=== PATIENT | male | born 1990 | race Caucasian/White ===

== ENCOUNTER 2022-12-20 11:33 | Emergency (ER) | payer OTHER, SELFPAY ==
[2022-12-20 11:51] VITALS: BP 142/70; PULSE 112; RESP 18; TEMP 37.4; O2SAT 99
--- NOTE | 2022-12-20 12:06 | ED.URI ---
HPI - URI/Sore Throat General Chief Complaint: Upper Respiratory Infection Stated Complaint: flu like symptoms Time Seen by Provider: 12/20/22 12:06 Source: patient Mode of arrival: ambulatory Limitations: no limitations History of Present Illness HPI Narrative: 32-year-old male presents with complaint of nasal congestion, cough, back aches, fever, headache starting today. Also has sore throat. Denies nausea vomiting diarrhea. No chest pain or shortness of breath. Took Cold medicine prior to arrival. All systems reviewed and negative except as noted above. Related Data Home Medications Medication Instructions Recorded Confirmed No Home Medications 12/20/22 12/20/22 Allergies Allergy/AdvReac Type Severity Reaction Status Date / Time No Known Allergies Allergy Verified 12/20/22 12:11 Review of Systems Review of Systems: CONSTITUTIONAL: reports fever, chills, or sweats. EYES: Denies visual changes, redness, or discharge. ENT: reports rhinorrhea, congestion, sore throat. Denies otalgia. CARDIOVASCULAR: Denies chest pain, palpitations, or edema. RESPIRATORY: Reports cough or dyspnea. GASTROINTESTINAL: Denies abdominal pain, nausea, vomiting, or diarrhea. GENITOURINARY: Denies dysuria or hematuria. SKIN: Denies rash or itching. MUSCULOSKELETAL: Denies back pain, joint pain, or myalgia. NEUROLOGIC: Denies headache, numbness, or weakness. PSYCHIATRIC: Denies anxiety or depression. All other systems reviewed are negative, except as documented in HPI. REPLACED BY [facility] Family History Family History (Updated 11/04/18 @ 07:13 by DOCTOR UNKNOWN) Mother Depression Other Diabetes mellitus Social History Social History Smoking status: Never smoker Comments At time of signature, agree with nursing past medical, surgical, social and family history. There is no relevant family history pertinent to the presenting complaint. Exam Narrative: GENERAL: This is a well-nourished, well-developed patient. Patient ill-appearing but no distress. HEAD: normocephalic, atraumatic. EYES: PERRL. Sclera clear/white. Vision is grossly intact. EARS: External ears normal, auditory canals clear and without drainage, TMs normal without perforation. Hearing grossly intact. NOSE: External nose normal with Clear nasal drainage, moderate congestion. THROAT: Mucous membranes moist, posterior pharynx clear. NECK: Neck supple, non-tender without lymphadenopathy, masses or thyromegaly. CARDIOVASCULAR: Regular rate and rhythm without murmurs, gallops, or rubs. RESPIRATORY: Clear to auscultation. Breath sounds equal bilaterally. No wheezes, rales, or rhonchi. SKIN: warm, Dry, intact with no suspicious lesions or rash, good texture and turgor. NEURO: awake, alert, and oriented to person, place and time. There were no obvious focal neurologic abnormalities. EXTREMITIES: No joint tenderness, effusion, or edema noted. Course Course Level of Care: Express Care Visit Vital Signs Vital signs: Vital Signs Temperature 37.4 C 12/20/22 11:51 Pulse Rate 112 H 12/20/22 11:51 Respiratory Rate 18 12/20/22 11:51 Blood Pressure 142/70 H 12/20/22 11:51 Pulse Oximetry 99 12/20/22 11:51 Oxygen Delivery Room Air 12/20/22 11:51 Temperature 37.4 C 12/20/22 11:51 Pulse Rate 112 H 12/20/22 11:51 Respiratory Rate 18 12/20/22 11:51 Blood Pressure 142/70 H 12/20/22 11:51 Pulse Oximetry 99 12/20/22 11:51 Oxygen Delivery Room Air 12/20/22 11:51 Reviewed MDM - URI/Sore Throat MDM Narrative Medical decision making narrative: Patient is aware of diagnosis, understands and agrees to treatment plan. Anticipatory guidance given. Patient agrees to follow-up as directed and is aware of reasons to seek care at the emergency department. Portions of this record may have been created with voice recognition software Discharge Plan Discharge Clinical Impression: COVID-19 Patient Disposition: Home, Self-Car
== END 2022-12-20 12:22 | disposition home or self-care (01) ==
PROVIDERS: Emergency Provider Nurse Practitioner Family
DX: U07.1 COVID-19 (principal)
CPT/HCPCS: 87426; 87804; 99213; C9803; G0463

== ENCOUNTER 2023-01-21 00:51 | Emergency (ER) | payer OTHER, SELFPAY ==
--- NOTE | ~2023-01-21 | CT_ITS ---
EXAMINATION: CT abdomen pelvis wo con DATE: 01/21/2023 01:33 INDICATION: Right flank pain, pelvic pain. History of kidney stones. TECHNIQUE: Computed tomography (CT) of the abdomen and pelvis was performed without intravenous contr ast. Automated exposure control and iterative reconstruction technique were employed. Exam dose: 365 .24 mGy-cm total exam DLP. COMPARISON: None. FINDINGS: The lung bases are clear. Normal heart size. No pericardial or pleural effusion. Hepatic steatosis. No hepatic, splenic, pancreatic or adrenal or renal space-occupying mass lesion is detected. The gallbladder is present. No bile duct or pancreatic duct dilatation. Approximately 3.5 mm nonobstructing mid left renal calculus and pinpoint lower pole nonobstructing le ft renal calculus. 5 mm distal right ureteral calculus at approximately S2 level with mild right hydroureteronephrosis. The urinary bladder and prostate gland are unremarkable. Normal caliber of the abdominal aorta. No intraperitoneal or retroperitoneal or pelvic mass lesion or adenopathy or ascites. No evidence of appendicitis. No bowel obstruction, bowel wall thickening, pneumatosis or intraperiton eal free air. Small fat-containing umbilical hernia. Included skeletal structures are unremarkable. IMPRESSION: 5 mm distal right ureteral calculus with mild right hydroureteronephrosis Mild left nonobstructive nephrolithiasis Hepatic steatosis Reviewed, dictated and finalized at [facility] Reviewed, dictated and finalized at [facility] [employer] IMPRESSION: 5 mm distal right ureteral calculus with mild right hydroureterone phrosis Mild left nonobstructive nephrolithiasis Hepatic steatosis
[2023-01-21 00:54] VITALS: BP 138/91; PULSE 63; RESP 14; TEMP 36.6; O2SAT 100
--- NOTE | 2023-01-21 01:10 | ED.MALEGU ---
HPI - Male Genitourinary General Chief complaint: Urogenital-Male Stated complaint: right side flank pain Time Seen by Provider: 01/21/23 01:07 History of Present Illness HPI Narrative: 32-year-old male here for evaluation of right flank pain over the past day. Patient states he has a history of kidney stones and that his pain today feels similar. He denies any nausea, vomiting, fevers, chills, dysuria, urgency or hematuria. Several days ago he had a episode of right-sided groin pain that has since resolved. He never required surgery on his kidney stones as they have passed spontaneously Related Data Allergies Allergy/AdvReac Type Severity Reaction Status Date / Time No Known Allergies Allergy Verified 01/21/23 00:51 Review of Systems Review of Systems: Gen: Denies fevers or chills Eyes: Denies eye pain or visual change ENT: Denies congestion Respiratory: Denies shortness of breath or cough CV: Denies chest pain or palpitations GI: Denies abdominal pain nausea, emesis or diarrhea denies burning, urgency, frequency or hematuria Musculoskeletal: Reports right flank pain. Neuro: Denies numbness, tingling, weakness or focal weakness Skin: Denies rash Except as documented, all other systems reviewed and negative PMFSH Family History Family History (Updated 11/04/18 @ 07:13 by DOCTOR UNKNOWN) Mother Depression Other Diabetes mellitus Social History Social History Smoking status: Never smoker Exam Narrative: APPEARANCE: Well appearing, no pain in distress, well-nourished. Head: Normocephalic and atraumatic. EYES: PERRLA/EOMI, conjunctivae clear NOSE: No nasal drainage EARS: External ear normal in appearance THROAT: Oropharynx is clear. Mucous membranes are moist. NECK: Supple. No adenopathy, no masses. RESPIRATORY: Airway patent, respirations nonlabored. Clear to auscultation bilaterally, no rales, rhonchi, wheezing. CARDIOVASCULAR: Regular rate and rhythm without murmurs, rubs, or gallops. ABDOMINAL: Normoactive bowel sounds. Soft, nontender, nondistended. No rebound tenderness or guarding. MUSCULOSKELETAL: Extremities are warm and well-perfused. Moves all extremities well. No edema. NEURO: Normal speech. No focal neurologic deficits. SKIN: Skin is warm and dry. No rashes. PSYCHIATRIC: Normal affect/mood.. Course Vital Signs Vital signs: Vital Signs Temperature 97.8 F 01/21/23 00:54 Pulse Rate 63 01/21/23 00:54 Respiratory Rate 14 01/21/23 00:54 Blood Pressure 138/91 H 01/21/23 00:54 Pulse Oximetry 100 01/21/23 00:54 Oxygen Delivery Room Air 01/21/23 00:54 Temperature 97.8 F 01/21/23 00:54 Pulse Rate 71 01/21/23 02:52 Respiratory Rate 16 01/21/23 02:52 Blood Pressure 124/76 01/21/23 02:52 Pulse Oximetry 98 01/21/23 02:52 Oxygen Delivery Room Air 01/21/23 00:54 MDM - Male Genitourinary MDM Narrative Medical decision making narrative: 32-year-old male with a history of kidney stones here for evaluation of right flank pain over the past day associated with some nausea. He is nontoxic in appearance and has normal vital signs. No CVA tenderness on exam. CT abdomen pelvis preliminary shows a 0.3 cm distal right stone with moderate hydroureteronephrosis. His urine has red blood cells but no evidence of infection. His kidney function is normal. Feeling improved after [place] in the ED. Feel outpatient management is appropriate at this time. Patient was discharged home to follow-up with urology and given a urine strainer. Return precautions were discussed and he voiced understanding. Lab Data 01/21/23 01:34 01/21/23 01:34 Labs: Lab Results 01/21/23 01/21/23 01/21/23 Range/Units 01:34 01:34 01:34 WBC 9.0 (4.5-10.0) K/mm3 RBC 5.12 (4.6-6.20) M/mm3 Hgb 14.6 (14.0-18.0) g/dL Hct 41.7 L (42.0-52.0) % MCV 81.4 (80-100) fl MCH 28.5 (26-34) pg MCHC 35.0 (32-36) g/dl RDW 12.5 (11
[2023-01-21] MEDS: HYDROcodone/acetaminophen (*CRX) 5-325 MG TABLET 1 TAB PO (01:33)
[2023-01-21 01:44] LABS: Basophils Absolute Auto 0.1 K/mm3 (0.0-0.1); Basophils Percent Auto 0.9 % (0.2-1.2); Eosinophils Absolute Auto 0.3 K/mm3 (0-0.3); Eosinophils Percent Auto 3.1 % (0-4.4); Hematocrit 41.7 % (42.0-52.0); Hemoglobin 14.6 g/dL (14.0-18.0); Immature Granulocyte Absolute 0.02 K/mm3 (0.00-0.031); Immature Granulocyte Percent A 0.2 % (0-0.5); Lymphocytes Absolute Auto 1.85 K/mm3 (0.9-3.2); Lymphocytes Percent Auto 20.6 % (18.3-44.2); Mean Corpuscular Hemoglobin 28.5 pg (26-34); Mean Corpuscular Volume 81.4 fl (80-100); Mean Platelet Volume 9.8 fl (7.4-10.4); Monocytes Absolute Auto 0.7 K/mm3 (0.1-0.6); Monocytes Percent Auto 7.6 % (2.6-8.5); Neutrophils Absolute Auto 6.1 K/mm3 (1.3-6.7); Neutrophils Percent Auto 67.6 % (45.5-73.1); Platelet Count Result 257 k/mm3 (150-375); Red Blood Count 5.12 M/mm3 (4.6-6.20); Red Cell Distribution Width 12.5 % (11.5-14.5)
[2023-01-21 01:48] LABS: Appearance Urine Clear (Clear); Bacteria Urine None Seen /hpf; Bilirubin Urine Negative (Negative); Blood Urine 3+ (Negative); Color Urine Yellow (Yellow); Glucose Urine UA Negative (Negative); Ketones Urine Negative (Negative); Leukocyte Esterase Ur Negative LEU/UL (Negative); Nitrate Urine Negative (Negative); Non Pathogenic Casts 0-2; Protein Urine Negative (Negative); Squamous Epithelial Cell Urine None seen /hpf (Few); Urobilinogen Urine 0.2 mg/dL (<2.0); WBC Urine 0-5 /hpf
[2023-01-21 02:00] LABS: Alanine Aminotransferase 98 U/L (6-50); Albumin Level 5.1 g/dL (3.5-5.1); Alkaline Phosphatase 64 U/L (38-126); Anion Gap 5 mmol/L (8-16); Aspartate Amino Transferase 53 U/L (17-59); Bilirubin,Total 0.7 mg/dL (0.2-1.3); Blood Urea Nitrogen 14 mg/dL (9-20); Calcium 9.1 mg/dL (8.4-10.2); Carbon Dioxide 27 mmol/L (22-30); Chloride 103 mmol/L (98-107); Estimated CRCL calculation 123 ml/min; Estimated Glomerular Filt Rate > 60; Glucose 121 mg/dL (65-110); Potassium 3.7 mmol/L (3.4-5.0); Sodium 135 mmol/L (137-145)
[2023-01-21 02:01] LABS: RBC Urine >75 /hpf (0-2)
[2023-01-21 02:03] LABS: Add Urine Microscopic? YES
[2023-01-21 02:52] VITALS: BP 124/76; PULSE 71; RESP 16; O2SAT 98
== END 2023-01-21 02:53 | disposition home or self-care (01) ==
PROVIDERS: Emergency Provider Physician Assistant
DX: N13.2 Hydronephrosis with renal and ureteral calculous obstruction (principal); Z87.442 Personal history of urinary calculi
CPT/HCPCS: 36415; 74176; 80053; 81001; 85025; 99284; A9270

== ENCOUNTER 2024-06-24 14:48 | Emergency (ER) | payer OTHER, SELFPAY ==
--- NOTE | ~2024-06-24 | XR_ITS ---
EXAMINATION: XR chest 2V DATE: 06/24/2024 15:18 INDICATION: Posterior rib pain. TECHNIQUE: Frontal and lateral views of the chest were obtained. COMPARISON: CT abdomen and pelvis 01/21/2023 FINDINGS: There is no pneumonia, pleural effusion, or pneumothorax. The heart size is normal. IMPRESSION: 1. No acute cardiopulmonary disease. Reviewed, dictated and finalized at [facility].
[2024-06-24 14:55] VITALS: BP 146/77; PULSE 78; RESP 16; TEMP 37.7; O2SAT 99
--- NOTE | 2024-06-24 15:09 | ED.URI ---
HPI - URI/Sore Throat General Chief Complaint: Unspecified Stated Complaint: UTI History of Present Illness HPI Narrative: Patient presents today with complaints of bilateral rib pain that began suddenly at about 11:00 a.m. this morning. He took Advil, moderate relief. He denies all injury and trauma. He denies any fever, chills, sweats. He denies any cough. He denies any exacerbating factors. He voices no other concerns or complaints today. Related Data Home Medications Medication Instructions Recorded Confirmed atomoxetine 40 mg capsule 40 mg PO DAILY 06/24/24 06/24/24 bupropion HCl 100 mg tablet 100 mg PO DAILY 06/24/24 06/24/24 cetirizine 10 mg tablet 10 mg PO DAILY 06/24/24 06/24/24 venlafaxine 37.5 mg 37.5 mg PO DAILY 06/24/24 06/24/24 capsule,extended release 24 hr Allergies Allergy/AdvReac Type Severity Reaction Status Date / Time No Known Allergies Allergy Verified 06/24/24 14:51 Review of Systems Review of Systems: All systems reviewed & are unremarkable except as noted in HPI and below Constitutional: Constitutional: Reports no additional constitutional complaints ENT: Reports system reviewed and no additional complaints, except as documented Cardiovascular: Cardiovascular: Reports no additional cardiovascular complaints Respiratory: Respiratory: Reports as per HPI, Reports no additional respiratory complaints and Reports no additional respiratory complaints Gastrointestinal: Gastrointestinal: Reports no additional gastrointestinal complaints Musculoskeletal: Musculoskeletal: Reports as per HPI [facility] Family History Family History Mother Depression Other Diabetes mellitus Social History Social History Smoking status: Never smoker Exam Const: General: cooperative, no acute distress, alert and awake Orientation/consciousness: oriented to person, oriented to place and oriented to time HENMT: Head: normal to inspection Chest: Chest palpation & inspection: normal inspection of the chest and normal palpation of entire chest wall Resp: Effort & Inspection: normal respiratory effort and able to speak in complete sentences Auscultation: clear to auscultation bilaterally, no crackles, no rales, no rhonchi and no wheezes Cardio: Palpation: normal PMI Rate: regular rate Rhythm: regular rhythm Heart sounds: S1 normal heart sound present and S2 normal heart sound present Neuro: General: oriented to person, oriented to place and oriented to time Cranial nerves: Yes CN's II-XII intact bilaterally Psych: Appearance: grossly normal Thought process: Normal thought process present Insight: Good insight present (Psych) Judgement: Good judgement present (Psych) Course Course Level of Care: Express Care Visit Vital Signs Vital signs: Vital Signs Temperature 99.8 F H 06/24/24 14:55 Pulse Rate 78 06/24/24 14:55 Respiratory Rate 16 06/24/24 14:55 Blood Pressure 146/77 H 06/24/24 14:55 Pulse Oximetry 99 06/24/24 14:55 Oxygen Delivery Room Air 06/24/24 14:55 Temperature 99.8 F H 06/24/24 14:55 Pulse Rate 78 06/24/24 14:55 Respiratory Rate 16 06/24/24 14:55 Blood Pressure 146/77 H 06/24/24 14:55 Pulse Oximetry 99 06/24/24 14:55 Oxygen Delivery Room Air 06/24/24 14:55 MDM - URI/Sore Throat MDM Narrative Medical decision making narrative: Patient with normal physical exam complaining of rib pain, bilateral for a couple of hours. Denies injury or trauma. Pain controlled with ibuprofen. Negative chest x-ray. Discharge home, supportive care measures discussed. Advised follow-up with primary care provider. Emergency department for new or worse symptoms Discharge instructions reviewed with patient, as well as provided in writing per nursing staff. The instructions also include specific and strict return/GO TO THE ER as well as f/u
== END 2024-06-24 15:34 | disposition home or self-care (01) ==
PROVIDERS: Emergency Provider Nurse Practitioner Family; PCP Physician Assistant
DX: M94.0 Chondrocostal junction syndrome [Tietze] (principal)
CPT/HCPCS: 71046; 99213; G0463

== ENCOUNTER 2024-06-25 19:01 | Emergency (ER) | payer OTHER, SELFPAY ==
--- NOTE | ~2024-06-25 | XR_ITS ---
EXAMINATION: XR chest 2V DATE: 06/25/2024 19:17 INDICATION: Chest pain TECHNIQUE: PA and lateral views of the chest were obtained. COMPARISON: Chest radiograph dated 06/24/2024 FINDINGS: The lungs remain clear with no focal airspace opacities, pulmonary edema, pleural effusion or pneumot horax. The cardiomediastinal silhouette is normal. Mild thoracic spondylosis. IMPRESSION: 1. No acute cardiopulmonary disease. Reviewed, dictated and finalized at [facility].
--- NOTE | ~2024-06-25 | CT_ITS ---
EXAMINATION: CT abdomen pelvis w con DATE: 06/25/2024 23:51 INDICATION: Right upper quadrant abdominal pain. Elevated liver enzymes. TECHNIQUE: Computed tomography (CT) of the abdomen and pelvis was performed with 100 mL Omnipaque-350 intravenous contrast. Automated exposure control and iterative reconstruction technique were employe d. The dose-length product was 896.21 mGy-cm. COMPARISON: None FINDINGS: Mild discoid atelectasis at the lingula. Heart size is normal. No pericardial or pleural effusion. Di ffuse hepatic steatosis with focal sparing along the gallbladder fossa. Gallbladder is normal. No int ra or extrahepatic biliary ductal dilation. Spleen, pancreas and bilateral adrenal glands are normal. There are bilateral renal cysts the largest on the right measuring 1.5 cm. 9 mm and 3 mm stones at t he lower pole of the left kidney. No ureteral stones or hydronephrosis. Bowels are normal. Bladder is normal. No free intraperitoneal gas or fluid. No pathologically enlarged abdominal or pelvic lymphad enopathy. Mild thoracic and lumbar spondylosis. IMPRESSION: 1. Diffuse hepatic steatosis. 2. Nonobstructing left nephrolithiasis. Reviewed, dictated and finalized at [facility].
--- NOTE | 2024-06-25 19:01 | ECG_ITS ---
Test Date: 2024-06-25 19:07:56 Measurements Intervals [place] Rate: 83 P: 46 MN: 138 QRS: 67 QRSD: 99 T: 20 QT: 346 QTc: 408 Interpretive Statements SINUS RHYTHM BASELINE ARTIFACT- I, II, III, AVR, AVL, AVF, V4-V6 NORMAL ECG No previous ECG available for comparison Electronically Signed On 06-25-2024 20:24:51 CDT by Aditya Castellanos D.O.
[2024-06-25 19:02] VITALS: BP 146/83; PULSE 86; RESP 16; TEMP 36.8; O2SAT 100
[2024-06-25 19:16] LABS: Basophils Absolute Auto 0.1 K/mm3 (0.0-0.1); Basophils Percent Auto 0.9 % (0.2-1.2); Eosinophils Absolute Auto 0.3 K/mm3 (0-0.3); Eosinophils Percent Auto 3.2 % (0-4.4); Hematocrit 43.7 % (42.0-52.0); Hemoglobin 15.3 g/dL (14.0-18.0); Immature Granulocyte Absolute 0.03 K/mm3 (0.00-0.031); Immature Granulocyte Percent A 0.3 % (0-0.5); Lymphocytes Absolute Auto 2.59 K/mm3 (0.9-3.2); Lymphocytes Percent Auto 29.2 % (18.3-44.2); Mean Corpuscular Hemoglobin 28.7 pg (26-34); Mean Corpuscular Volume 81.8 fl (80-100); Monocytes Absolute Auto 0.9 K/mm3 (0.1-0.6); Monocytes Percent Auto 10.5 % (2.6-8.5); Neutrophils Percent Auto 55.9 % (45.5-73.1); Platelet Count Result 310 k/mm3 (150-375); Red Blood Count 5.34 M/mm3 (4.6-6.20); Red Cell Distribution Width 12.5 % (11.5-14.5); White Blood Count 8.9 K/mm3 (4.5-10.0)
[2024-06-25 19:26] LABS: Alanine Aminotransferase 300 U/L (6-50); Albumin Level 5.1 g/dL (3.5-5.1); Alkaline Phosphatase 73 U/L (38-126); Anion Gap 11 mmol/L (4-12); Aspartate Amino Transferase 280 U/L (17-59); Bilirubin,Total 1.2 mg/dL (0.2-1.3); Blood Urea Nitrogen 9 mg/dL (9-20); Calcium 9.1 mg/dL (8.4-10.2); Carbon Dioxide 29 mmol/L (22-30); Chloride 101 mmol/L (98-107); Estimated CRCL calculation 136 ml/min; Estimated Glomerular Filt Rate > 60; Glucose 115 mg/dL (65-110); Lipase 179 U/L (23-300); Potassium 3.6 mmol/L (3.4-5.0); Prothrombin Time 14.1 Seconds (11.1-14.7); Sodium 141 mmol/L (137-145)
[2024-06-25 19:37] LABS: Troponin I < 0.012 ng/mL (0.000-0.034)
[2024-06-25 23:03] VITALS: BP 151/83; PULSE 77; PULSE 96; RESP 18; TEMP 36.8; O2SAT 100
--- NOTE | 2024-06-25 23:11 | ED.GENADULT ---
[facility] General Adult General Chief complaint: Chest Pain Stated complaint: chest pain Time Seen by Provider: 06/25/24 23:02 Source: patient Mode of arrival: ambulatory Limitations: no limitations History of Present Illness HPI narrative: This is a 33-year-old male who presents to the ED for chief complaint of upper abdominal/chest pain beginning at yesterday. Reports that the pain started shortly after eating yesterday. went to urgent care and was diagnosed with costochondritis. Today states that the pain came back after eating. Reports bilateral rib/ upper abdominal pain that radiates around to the back. endorses 1 episode of vomiting today. Denies fevers, chills , diarrhea, urinary symptoms, cough, exertional chest pain, syncope, numbness, weakness. Related Data Home Medications Medication Instructions Recorded Confirmed atomoxetine 40 mg capsule 40 mg PO DAILY 06/24/24 06/24/24 bupropion HCl 100 mg tablet 100 mg PO DAILY 06/24/24 06/24/24 cetirizine 10 mg tablet 10 mg PO DAILY 06/24/24 06/24/24 venlafaxine 37.5 mg 37.5 mg PO DAILY 06/24/24 06/24/24 capsule,extended release 24 hr Allergies Allergy/AdvReac Type Severity Reaction Status Date / Time No Known Allergies Allergy Verified 06/24/24 14:51 Review of Systems Review of Systems: All systems as dictated in [facility] Family History Family History Mother Depression Other Diabetes mellitus Social History Social History Smoking status: Never smoker Exam Narrative: GENERAL: Well-appearing, well-nourished, and in no acute distress. HEAD: Normocephalic, atraumatic. EYES: PERRLA and EOMI. ENT: Nares clear, no rhinorrhea or epistaxis. Mucous membranes moist. Oropharynx without tonsillar hypertrophy exudate or other lesions. NECK: Supple. No adenopathy or masses. CHEST: No respiratory distress. Clear to auscultation. No wheezes rales or rhonchi HEART: Regular rate and rhythm. No murmur heard. Normal peripheral pulses. ABDOMEN: Soft, nontender, nondistended, normal active bowel sounds. MSK: Normal range of motion. No edema. SKIN: Warm, dry, no rash. NEURO: Alert and oriented x4. No focal deficits. PSYCH: Normal mood and affect. Course Vital Signs Vital signs: Vital Signs Temperature 98.2 F 06/25/24 19:02 Pulse Rate 86 06/25/24 19:02 Respiratory Rate 16 06/25/24 19:02 Blood Pressure 146/83 H 06/25/24 19:02 Pulse Oximetry 100 06/25/24 19:02 Oxygen Delivery Room Air 06/25/24 19:02 Temperature 98.2 F 06/25/24 23:03 Pulse Rate 77 06/25/24 23:03 Respiratory Rate 18 06/25/24 23:03 Blood Pressure 151/83 H 06/25/24 23:03 Pulse Oximetry 100 06/25/24 23:03 Oxygen Delivery Room Air 06/25/24 23:03 Medical Decision Making MDM Narrative Medical decision making narrative: This is a 33-year-old male who presents to the ED for chief complaint of bilateral lower chest/ upper abdominal pain. Vitals are normal. CBC shows normal white count and is grossly unremarkable. CMP remarkable for a slightly elevated AST and ALT of 280 and 300 respectively. ALP and bilirubin are normal. Troponin x2 is normal. Perc rule negative for PE. Chest x-ray shows no acute findings. CT abdomen remarkable for hepatic steatosis. Discussed the above findings with the patient. We discussed that the fatty liver may be responsible for the elevations in liver enzymes today. would expect elevated ALP if patient had acute gallbladder disease today. Heart score 0. Pt will be discharged in stable condition. Given Rx for Toradol. Return precautions given and supportive measures discussed. Pt is understanding and agreeable with plan for discharge and follow-up with PCP. Vital Signs Vital Signs: Vital Signs Temperature 98.2 F 06/25/24 19:02 Pulse Rate 86 06/25/24 19:02 Respiratory Rate 16
[2024-06-25] MEDS: KETOROLAC 30 MG/ML VIAL (*BKC) IV PUSH (23:23)
[2024-06-25 23:44] LABS: Troponin I < 0.012 ng/mL (0.000-0.034)
== END 2024-06-26 00:30 | disposition home or self-care (01) ==
PROVIDERS: Emergency Medicine; Emergency Provider Physician Assistant; PCP Physician Assistant
DX: K76.0 Fatty (change of) liver, not elsewhere classified (principal); N20.0 Calculus of kidney
CPT/HCPCS: 36415; 71046; 74177; 80053; 83690; 84484; 85025; 85610; 85730; 93005; 96374; 99284; J1885; Q9967

== ENCOUNTER 2024-09-22 16:09 | Outpatient (CLI) | payer OTHER, SELFPAY ==
--- NOTE | ~2024-09-22 | XR_ITS ---
EXAMINATION: XR thoracic spine 3V DATE: 09/22/2024 16:28 INDICATION: 2 weeks of thoracic spine pain TECHNIQUE: One AP, lateral and lateral swimmer's views of the thoracic spine were obtained. COMPARISON: Chest radiograph and CT abdomen and pelvis dated 06/25/2024 FINDINGS: Unchanged 13 degree upper thoracic levoscoliosis and 10 degrees mid thoracic dextrocurvature. Sagitta l alignment is normal. Chronic minimal anterior wedging at T6-T8 and at T12 and L1. Mild thoracic spo ndylosis. 10 mm renal stone likely representing the left renal stone seen on the prior CT. Visualized lungs are clear. No pleural effusion or pneumothorax. Heart size is normal. IMPRESSION: 1. Mild S-shaped scoliosis of the thoracic spine with mild spondylosis and minimal chronic anterior w edging of a few mid and lower thoracic vertebral bodies. Reviewed, dictated and finalized at [facility]. IMPRESSION: 1. Mild S-shaped scoliosis of the thoracic spine with mild spondylosis and mini mal chronic anterior wedging of a few mid and lower thoracic vertebral bodies.
--- NOTE | ~2024-09-22 | US_ITS ---
EXAMINATION: US renal BI DATE: 09/22/2024 16:45 INDICATION: Renal cyst TECHNIQUE: Multiple ultrasound grayscale images of the kidneys were obtained. COMPARISON: CT dated 06/25/2024 FINDINGS: The right kidney measures 10.4 x 5.6 x 5.9 cm. The left kidney measures 12.1 x 5.3 x 5.2 cm. The kidn eys demonstrate normal echogenicity. 1.5 cm anechoic cyst with posterior echogenic wall at the lower pole of the right kidney 11 mm anechoic cyst at the lower pole of the left kidney. 13 mm echogenic an d shadowing stone at the left renal pelvis which likely more accurately measured 9 mm on the prior CT . There is no hydronephrosis in either kidney. The bladder is normal with bilateral ureteral jets vis ualized on color Doppler.. IMPRESSION: 1. Bilateral renal cysts and nonobstructing stone at the left renal pelvis. Otherwise normal kidneys with no hydronephrosis in either kidney. Reviewed, dictated and finalized at [facility]. IMPRESSION: 1. Bilateral renal cysts and nonobstructing stone at the left renal pelvis. Ot herwise normal kidneys with no hydronephrosis in either kidney.
== END 2024-09-22 16:10 | disposition home or self-care (01) ==
LOC: ANHIMG 16:12
PROVIDERS: PCP Physician Assistant; Visit Provider Physician Assistant
DX: N28.1 Cyst of kidney, acquired (principal); M47.894 Other spondylosis, thoracic region; M41.9 Scoliosis, unspecified
CPT/HCPCS: 72072; 76775

== ENCOUNTER 2025-01-15 10:00 | Emergency (ER) | payer OTHER, SELFPAY ==
--- NOTE | ~2025-01-15 | XR_ITS ---
Supine and upright views of the abdomen Clinical history: Kidney stone, abdominal pain Findings: Bowel gas pattern is nonspecific. No evidence for obstruction or free air. 1 cm round stone present probably left renal pelvis region. Additional small left lower pole renal stone likely prese nt. No definite right-sided stone seen. Probable calcified pelvic phleboliths. Osseous structures are intact. Impression: 1 cm stone at the left renal pelvis region with additional small left lower pole renal stone. Reviewed, dictated and finalized at location . LED LABORER Impression: 1 cm stone at the left renal pelvis region with additional small left lower kira e renal stone.
--- NOTE | 2025-01-15 10:06 | ED.MALEGU ---
HPI - Male Genitourinary General Chief complaint: Urogenital-Male Stated complaint: Male Problems/UTI Time Seen by Provider: 01/15/25 10:01 Source: patient Mode of arrival: ambulatory Limitations: no limitations History of Present Illness HPI Narrative: Patient is a 34-year-old male who presents with right low back pain, dark urine and mild testicular pain for several days. Patient reports history of kidney stone reports the symptoms feel similar. Denies any testicular swelling, scrotal swelling, abnormal discharge or concern for STI. Denies any fever, chills, nausea, vomiting, diarrhea. Denies any burning with urination, urgency or frequency. Related Data Home Medications ?Medication ?Instructions ?Recorded ?Confirmed ?Last Taken ?Type atomoxetine 40 mg capsule 40 mg PO DAILY 06/24/24 06/24/24 Unknown History bupropion HCl 150 mg 24 hr tablet, mg PO 01/15/25 Unknown History extended release Allergies Allergy/AdvReac Type Severity Reaction Status Date / Time No Known Allergies Allergy Verified 01/15/25 10:12 Review of Systems Review of Systems: All systems reviewed & are unremarkable except as noted in HPI and below Constitutional: Constitutional: Denies chills, Denies fever(s), Denies headache(s), Denies malaise and Denies weakness Eyes: Eyes: Denies change in vision, Denies eye discharge and Denies irritation ENT: Denies otalgia, Denies headache(s), Denies nasal congestion, Denies nasal discharge, Denies sinus pain and Denies sore throat Cardiovascular: Cardiovascular: Denies chest pain, Denies edema, Denies palpitations and Denies dyspnea Respiratory: Respiratory: Denies cough and Denies dyspnea Gastrointestinal: Gastrointestinal: Denies abdominal pain, Denies diarrhea, Denies nausea and Denies vomiting Genitourinary: Genitourinary: Reports hematuria, Denies dysuria, Reports flank pain, Reports testicular pain and Denies urinary urgency Musculoskeletal: Musculoskeletal: Denies back pain and Denies numbness Integumentary/Breasts: Skin/Breast: Denies pruritus and Denies rash Neurologic: Denies headache(s), Denies numbness and Denies weakness Psychiatric: Psychiatric: Reports no additional psychiatric complaints Endocrine: Endocrine: Denies palpitations PMFSH Family History Family History Mother Depression Other Diabetes mellitus Social History Social History Smoking status: Never smoker Comments At time of signature, agree with nursing past medical, surgical, social and family history. There is no relevant family history pertinent to the presenting complaint. Exam Const: General: cooperative, healthy appearing, comfortable, no acute distress and well nourished Nutritional Appearance: well nourished Orientation/consciousness: patient oriented x3 HENMT: Head: normocephalic and atraumatic Ears: external ears normal Face/Nose/Sinus: Normal external nose present, Normal nares present and normal facial exam Face and sinus: normal facial exam Eyes: General: appearance normal, both eyes and all related structures Pupils: Equal, round and reactive pupils present EOM: EOMs intact bilaterally Neck: Neck: normal visual inspection, full ROM and supple Chest: Chest palpation & inspection: normal inspection of the chest Resp: Effort & Inspection: normal respiratory effort and able to speak in complete sentences Cardio: Rate: regular rate Rhythm: regular rhythm GI: Inspection: normal to inspection GI Palp: No abdominal tenderness and Yes Soft to palpation : General: Yes no CVA tenderness Male General Exam: Yes normal external exam Penis: Yes normal penis Meatus: meatus normal Scrotum: scrotum normal Testes: Testes normal Back/Spine/Pelvis: Back: CVA tenderness (left) Skin: General skin exam: normal color and no rashes or lesions noted Neuro: General: patient oriented x3 and moves all extremities Cranial nerves: Yes Equal, round and reactive pupils present Extrem: General: normal to inspection and full ROM Psych: Appearance: grossly normal and well kempt Course Course Emergency Course: Patient being sent to [facility] for further evaluation and treatment for kidney stone. Patient will need intervention. Portions of this record may have been created with voice recognition software Level of Care: Express Care Visit Vital Signs Vital signs: Reviewed Transfer Transfered to: [facility] Transportation: Other (Private auto) Transfer rationale: 1 cm kidney stone present with pain. Accepting physician: Trevor COSBY MDM - Male Genitourinary MDM Narrative Medical decision making narrative: Patient being sent to [facility] for further evaluation and treatment for kidney stone. Patient will need intervention. Differential Diagnosis Differential diagnosis: Likely urinary tract infection, urethritis, epididymitis, acute retention of urine and other (kidney stone) Medical Records Attestation: I reviewed the patient's medical records. Lab Data Attestation: I reviewed the patient's lab results. Imaging Data Radiologist's impression: Supine and upright views of the abdomen Clinical history: Kidney stone, abdominal pain Findings: Bowel gas pattern is nonspecific. No evidence for obstruction or free air. 1 cm round stone present probably left renal pelvis region. Additional small left lower pole renal stone likely present. No definite right-sided stone seen. Probable calcified pelvic phleboliths. Osseous structures are intact. Impression: 1 cm stone at the left renal pelvis region with additional small left lower pole renal stone. Discharge Plan Discharge Clinical Impression: Kidney stone Patient Disposition: Acute Care Hospital Condition: Stable Patient Language: Bahraini Prescriptions: No Action atomoxetine 40 mg capsule 40 mg PO DAILY bupropion HCl 150 mg tablet extended release 24 hr PO Follow-up/Referrals: Vangie,EMORY Green [Primary Care Provider] - Time of Disposition: 11:12
[2025-01-15 10:11] VITALS: BP 141/84; PULSE 93; RESP 15; TEMP 37.6; O2SAT 98
[2025-01-15 10:29] LABS: EDUAAPPEAR Cloudy; EDUABILI Negative (Negative); EDUABLOOD 3+ (Negative); EDUACOLOR1 Dark; EDUAGLUCOSE Negative (Negative); EDUAKETONE Negative (Negative); EDUALEUKO Negative (Negative); EDUANITRATE Negative (Negative); EDUAPROTEIN 2+ (Negative); EDUAUROBILI 0.2
== END 2025-01-15 11:11 | disposition short-term general hospital (02) ==
PROVIDERS: Emergency Provider Nurse Practitioner Family; PCP Physician Assistant
DX: N20.0 Calculus of kidney (principal)
CPT/HCPCS: 74018; 81003; 96372; 99213; G0463

== ENCOUNTER 2025-01-15 11:34 | Emergency (ER) | payer OTHER, SELFPAY ==
--- NOTE | ~2025-01-15 | US_ITS ---
EXAMINATION: US scrotum doppler DATE: 01/15/2025 13:16 INDICATION: Left testicular pain. TECHNIQUE: Grayscale and Doppler ultrasound images of the testes were obtained. COMPARISON: None. FINDINGS: The right testis measures 3.5 x 2.3 x 3.4 cm. The left testis measures 4.5 x 2.5 x 3.0 cm. There is normal vascular flow to both testes. The right epididymis is normal with normal vascular domenica w. The left epididymis demonstrates a 4 mm cyst. There is no varicocele or hydrocele. IMPRESSION: 1. No etiology for the patient's symptoms. Reviewed, dictated and finalized at location A. E ACTOR
--- NOTE | ~2025-01-15 | CT_ITS ---
EXAMINATION: CT abdomen pelvis wo con DATE: 01/15/2025 13:10 INDICATION: Left-sided low back pain. TECHNIQUE: Computed tomography (CT) of the abdomen and pelvis was performed without intravenous contr ast. Automated exposure control and iterative reconstruction technique were employed. The dose-length product was 753.77 mGy-cm. COMPARISON: CT abdomen and pelvis 06/25/2024 FINDINGS: The visualized portions of lung bases demonstrate mild atelectasis on the left. No pleural effusion. The heart size is normal. No pericardial effusion. There is diffuse hepatic steatosis. Calc ifications in the spleen are consistent with old granulomatous disease. The gallbladder, pancreas, an d adrenal glands are normal. There are cysts in the kidneys measuring up to 18 mm on the right. There are 3 mm, 2 mm, and 3 mm stones in left kidney. There is a 9 mm stone in left renal pelvis. The pros [place] is mildly enlarged. There are no dilated loops of bowel. The appendix is not visualized. There a re no pathologically enlarged lymph nodes. There is no free intraperitoneal fluid. There is mild thor acic and lumbar spondylosis. IMPRESSION: 1. Stones in left kidney and left renal pelvis. No hydronephrosis. 2. Diffuse hepatic steatosis. Reviewed, dictated and finalized at location A. PER GRINDER
[2025-01-15 11:42] VITALS: BP 139/77; PULSE 84; RESP 16; TEMP 37.1; O2SAT 100
--- OUTSIDE RECORDS SUMMARY | 2025-01-15 11:52 | XMS_ITS | Clinical Summary ---
Author Organization [facility] Address [address] [place] [id number] Care Team Providers Care Factory Maintenance Manager Name Role Phone Unavailable Primary Care Provider Unavailabl e Social History Tobacco Use Types Packs/Day Years Used Date Smoking Tobacco: Never Assessed Sex and Gender Information Value Date Recorded Sex Assigned at Not on file Legal Sex Male 5:19 PM CDT Gender Identity Not on file Sexual Orientation Not on file Last Filed Vital Signs Vital Sign Reading Time Taken Comments Blood Pressure 108/59 09/01/2015 10:00 AM CDT Pulse 68 09/01/2015 10:00 AM CDT Temperature - - Respiratory Rate - - Oxygen Saturation - - Inhaled Oxygen Concentration - - Weight 83.5 kg (184 lb) 09/01/2015 10:00 AM CDT Height 176.5 cm (5' 9.5 ) 08/03/2015 10:54 AM CD T Body Mass Index 26.78 08/03/2015 10:54 AM CDT Plan of Treatment Health Maintenance Due Date Last Done Comments Annual Physical 1993 Hepatitis C 2008 DTaP, Tdap and Td Vaccines ( 1 - Tdap) 2009 Hepatitis B Vaccines (1 of 3 - 19+ 3-dose series) 2009 COVID-19 Vaccine (2023-2 5 season) 2024 Influenza Adult (#1) 2024 HPV Vaccines Aged Out No longer eligi ble based on patient's age to complete this topic Meningococcal B Vaccine Aged Out No l onger eligible based on patient's age to complete this topic Meningococcal Vaccine Aged Out No austin maureen eligible based on patient's age to complete this topic Pneumococcal Vaccine: Pediat rics (0 to 5 Years) and At-Risk Patients (6 to 64 Years) Aged Out No longer eligible b ased on patient's age to complete this topic RSV Immunizations Under 20 Months Aged Out No longer eligible based on patient's age to complete this topic
--- OUTSIDE RECORDS SUMMARY | 2025-01-15 11:52 | XMS_ITS | Patient Health Record ---
Author Organization [facility] Address [address] [place] [address] Care Team Providers Care Cash Register Balancer Name Role Phone Vangie Shwetha Marcos Primary Care Provider Unav Jamison Amaro Unavailable [phone] [facility]-Migration, Provider Unavailable Unavailab le Allergies No Known Allergies Reason For Referral No Information Medications Medication SIG (Take, Route, Frequency, Duration) Notes Start Date End Date Status Allergy Relief (Cetirizine) 10 MG 1 tab(s) orally once a day 08/29/2023 Active WELLBUTRIN XL 150 mg/24 hours 1 tab(s) orally every 24 hours 08/29/2023 Active ALLERGY RELIEF (CETIRIZINE) 10 mg 1 tab(s) orally once a day 08/29/2023 Active Wellbutrin XL 150 MG 1 tab(s) orally katiuska ry 24 hours 08/29/2023 Active Social History Tobacco Use: Social History Observation Description Date Details (start date - stop date) Never Smoker NA - NA Smoking Smart Form: Question Answer Notes Are you a: never smoker Problems Problem Type SNOMED Code ICD Code Onset Dates Problem Status W/U Status Risk Notes Problem Anxiety disorder (990733153) Anxiety disorder, unspecified (F41.9) Active confirmed Problem Chronic rhinitis (97343199) Chronic rhinitis (J31.0) Active confirmed Problem Snoring (78000670) Snoring (R06.83) Active confirmed Encounters Encounter Location Date Provider Diagnosis [facility] [address] [place] [address] 05/10/2024 Provider ZZ-Migration Hypertrophy of nasal turbinates J34.3 Assessments Encounter Date Diagnosis (ICD Code) Assessment Notes Treatment Notes Treatment Clinical Notes Section Notes 05/10/2024 Hypertrophy of nasal turbinates (ICD-10 - J34.3) Plan Of Treatment Pending Test Test Name Order Date -Respiratory Allergens w/Total IgE Area 8 09/17/2023 Insurance Providers Payer Name Payer Address Payer Phone Subscriber Number Group Number Insured Name Patient Relationship to Insured Coverage Start Date Coverage End Date [facility] [address] [address] [place] [address] [id number] Srinivas Davidson Self - patient is the insured Medical (General) History Medical History History ICD Code Anxiety disorder, unspecified F41.9 Surgical History Surgery Date(Month/Year) appendectomy 1996 Hospitalization History Reason Date(Month/Year) kidney stones 2018 & 2021
--- OUTSIDE RECORDS SUMMARY | 2025-01-15 11:52 | XMS_ITS ---
Author Organization [facility] Address [address] [place] [address] Care Team Providers Care Sorority Mother Name Role Phone Shwetha Vences Primary Care Provider Unav Jamison Amaro Unavailable [phone] [facility]-Migration, Provider Unavailable Unavailab le REASON FOR VISIT [facility] To [facility] Conversion Encounter Medications Medication SIG (Take, Route, Frequency, Duration) Notes Start Date End Date Status Allergy Relief (Cetirizine) 10 MG 1 tab(s) orally once a day 08/29/2023 Active Wellbutrin XL 150 MG 1 tab(s) orally katiuska ry 24 hours 08/29/2023 Active Encounters Encounter Location Date Provider Diagnosis [facility] [address] [place] [address] 05/10/2024 Provider ZZ-Migration Hypertrophy of nasal turbinates J34.3 Assessments Encounter Date Diagnosis (ICD Code) Assessment Notes Treatment Notes Treatment Clinical Notes Section Notes 05/10/2024 Hypertrophy of nasal turbinates (ICD-10 - J34.3) Plan Of Treatment Medication Medication Name Sig Start Date Stop Date Notes Allergy Relief (Cetirizine) 10 MG 1 tab(s) orally once a day 08/29/2023 Wellbutrin XL 150 MG 1 tab(s) orally katiuska ry 24 hours 08/29/2023 Progress Notes * Xavier DAVIDSON:1990 (34 yo M)Acc No.[id number]:05/10/2024 Patient: Srinivas JASON Provider: Mary Juarez :1990 A ge:33 Y S ex:Male Date:05/10/2024 Address:[facility] [address] [place], [place] [id number] Pcp:Shwetha Vences Subjective: * Chief Complaints: * 1 . Multum To Medispan Conversion Encounter. * Medical History: Objective: * Vitals: Assessment: * Assessment: 1. H ypertrophy of nasal turbinates - J34.3 (Primary) Plan: * Treatment: 2. O thers Continue Wellbutrin XL Tablet Extended Release 24 Hour, 150 MG, 1 tab(s), orally, every 24 hours.? * Billing Information: * Visit Code: * Procedure Codes: * Electronic signature of Prov nigelr ZZ-Migration on 01/15/2025 at 11:52 AM SHIPPING LEAD Sign off status: Pending * Provider: Mary Juarez Date: 0 05/10/2024 Generated for Tim daniel/Sis/Benismitting on: 0 01/15/2025 11:52 AM SHIPPING LEAD
--- OUTSIDE RECORDS SUMMARY | 2025-01-15 11:52 | XMS_ITS ---
Author Organization [facility] Address [address] [place] [address] Care Team Providers Care [place] Mill Operator Name Role Phone Shwetha Vences Primary Care Provider Unav ailJamison Carrasco Unavailable [phone] Lucia Justice Unavailable [phone] REASON FOR VISIT Skin testing Encounters Encounter Location Date Provider Diagnosis [facility] [address] [place] [address] 11/13/2023 Lucia Justice Plan Of Treatment No Information Progress Notes * DAVIDSONSrinivas MEDINADOB:1990 (34 yo M)Acc No.[id number]:11/13/2023 Skin Testing Patient: Srinivas JASON Provider: ROSEANNE Donato :1990 A ge:33 Y S ex:Male Date:11/13/2023 Address[address] [id number] Pcp:Shwetha Vences Subjective: * Chief Complaints: * 1 . Skin testing. * Medical History: Objective: * Vitals: Assessment: Plan: * Treatment: * Billing Information: * Visit Code: * Procedure Codes: * Electronic signature of Lucia Justice DNP, FNP-C on 01/15/2025 at 11:52 AM DIRECT MAIL CLERK Sign off status: Pending * Provider: Curt Justice DNP RUBBER AND POUNDER-C Date: 1 01/14/2023 Generated for Tim daniel/Sis/Natalia on: 0 01/15/2025 11:52 AM DIRECT MAIL CLERK
--- OUTSIDE RECORDS SUMMARY | 2025-01-15 11:52 | XMS_ITS ---
Author Organization [facility] Address [address] [place] [address] Care Team Providers Care Service Line Coordinator Name Role Phone Shwetha Vences Primary Care Provider Kassandrav Jamison Amaro Unavailable [phone] Lucia Justice Unavailable [phone] Allergies No Known Allergies REASON FOR VISIT Chronic upper airway symptoms concerning for uncontrolled atopic disease, with itchy, watery eyes and congestion - last dose of cetirizine 10 mg 4 days ago. Medications Medication SIG (Take, Route, Frequency, Duration) Notes Start Date End Date Status WELLBUTRIN XL 150 mg/24 hours 1 tab(s) orally every 24 hours 08/29/2023 Active ALLERGY RELIEF (CETIRIZINE) 10 mg 1 tab(s) orally once a day 08/29/2023 Active Social History Tobacco Use: Social History Observation Description Date Details (start date - stop date) Never Smoker NA - NA Smoking Smart Form: Question Answer Notes Are you a: never smoker Vital Signs Blood pressure systolic 114 mm Hg 09/17/20 Blood pressure diastolic 77 mm Hg 023 Height 70 in 09/17/2023 Weight 227.8 lbs 09/17/2023 BMI 32.68 kg/m2 09/17/2023 Oximetry 96 % 09/17/2023 Encounters Encounter Location Date Provider Diagnosis [facility] [address] [place] [address] 09/17/2023 Lucia Justice Hypertrophy of nasal turbinates J34.3 ; Chronic rhinitis J31.0 and Snoring R06.83 Assessments Encounter Date Diagnosis (ICD Code) Assessment Notes Treatment Notes Treatment Clinical Notes Section Notes 09/17/2023 Hypertrophy of nasal turbinates (ICD-10 - J34.3) Srinivas presents with upper airway symptoms concerning for uncontrolled atopic disease. Unable to complete skin testing previously due to Srinivas remaining on antihistamines. - Srinivas returned today for skin testing. He reports that he last took Zyrtec 4 days ago. Due to this positive and negative control were placed. Skin testing performed to negative control that resulted in a 7 mm wheal consistent with dermatographism so further skin testing could not per reliably performed. - Due to dermatographism will send aeroallergen ImmunoCaps for further assessment. - Consider bringing Srinivas back this Winter to reattempt skin testing vs formulating treatment plan around ImmunoCaps pending laboratory results. He is to hold antihistamines 7-10 days prior to skin testing if indicated 09/17/2023 Chronic rhinitis (ICD-10 - J31.0) See plan above, rule out atopy 09/17/2023 Snoring (ICD-10 - R06.83) Loud snoring and screener suggests intermittent risk for sleep apnea. Do BI for sleep and follow-up as above Plan Of Treatment Medication Medication Name Sig Start Date Stop Date Notes WELLBUTRIN XL 150 mg/24 hours 1 tab(s) o rally every 24 hours 08/29/2023 ALLERGY RELIEF (CETIRIZINE) 10 mg 1 tab(s) orally once a day 08/29/2023 Treatment Notes Assessment Notes Hypertrophy of nasal turbinates Srinivas presents with upper airway symptoms concerning for uncontrolled atopic disease. Unable to complete skin testing previously due to Srinivas remaining on antihistamines. - Srinivas returned today for skin testing. He reports that he last took Zyrtec 4 days ago. Due to this positive and negative control were placed. Skin testing performed to negative control that resulted in a 7 mm wheal consistent with dermatographism so further skin testing could not per reliably performed. - Due to dermatographism will send aeroallergen ImmunoCaps for further assessment. - Consider bringing Srinivas back this Winter to reattempt skin testing vs formulating treatment plan around ImmunoCaps pending laboratory results. He is to hold antihistamines 7-10 days prior to skin testing if indicated Chronic rhinitis See plan above, rule out atopy Snoring Loud snoring and scr eener suggests intermittent risk for sleep apnea. Do BI for sleep and follow-up as above Pending Test Test Name Order Date -Respiratory Allergens w/Total IgE Area 8 09/17/2023 Next Appt Details Follow Up: 6 Weeks, Reason: Evaluation and Management, Laboratory Review, Skin Testing: aeroallergens Procedure Notes * Category Sub-Category Detail Notes Skin Testing Epicutaneous skin testing was performed to negative control that resulted in a 7 mm wheal consistent with dermatographism so further skin testing could not per reliably performed Progress Notes * Srinivas DAVIDSONDOB:1990 (32 yo M)Acc No.[id number]:09/17/2023 Skin Testing Patient: Srinivas Tariq Provider: Curt Justice DNP LANDSCAPER-C :1990 A ge:32 Y S ex:Male Date:09/17/2023 Address:[facility], [address] Pcp:Shwetha Vences Subjective: * Chief Complaints: * C hronic upper airway symptoms concerning for uncontrolled atopic disease, with itchy, watery eyes and congestion - last dose of cetirizine 10 mg 4 days ago. * HPI: * Introduction: I had the pleasure of seeing Riana Davidson, a 32-year-old male with a past medical history of anxiety who presents with chronic upper airway symptoms concerning for allergies, here for follow-up evaluation. Srinivas was initially seen 3 weeks ago, and presented with complaints of nasal congestion, drainage and itchy, watery eyes. He perceives worse symptoms when exposed to pollen, dust, cats and dogs. Report symptoms have been occurring for the majority of his life. Skin testing has yet to be performed due to Srinivas continuing to take his antihistamines. He returns today to undergo skin testing to aeroallergens, however reports that he last took Zyrtec 4 days ago. Today, he reports no fevers, chills, night sweats or other constitutional symptoms. * ROS: A LLERGY: Positive p er the HPI and history, otherwise unremarkable.? S PECIAL SENSES: Positve for n one. C ONSTITUTIONAL: Positive for n one. E NT: Positive p er the HPI and history, otherwise unremarkable.? R ESPIRATORY: Positive p er the HPI and history, otherwise unremakable.? O PHTHALMOLOGY: Positive for p er the HPI and history, otherwise unremarkable. E NDOCRINOLOGY: Positive for n one. C ARDIOLOGY: Positive for n one. G ASTROENTEROLOGY: Positive for n one. U ROLOGY: Positive for n one. D ERMATOLOGY: Positive for p er the HPI and history, otherwise unremakable. N EUROLOGY: Positive for n one. H EMATOLOGY/LYMPH: Positive for n one. M USCULOSKELETAL: Positive for n one. P SYCHOLOGY: Positive for n one. A ll other review of systems per the HPI and history, otherwise unremarkable. * Medical History: * Surgical History: a ppendectomy 1996 * Hospitalization/Major Diagno stic Procedure: k idney stones 2018 & 2021 * Family History: F ather: alive. M other: alive. 2 brother(s) , 1 sister(s) . . mother- diabetes/kidney issues/dementia. * Social History: M arital Status What is your marital status? s aditi A lcohol Screening Do you ever drink alcoholic beverages? Y es Number of drinks per occasion: 2 Frequency? M onthly S moking Are you a : n ever smoker S moking Smart Form Are you a: n ever smoker R ecreational drug use Have you ever used recreational drugs? N o D etails on consumption of certain products? Do you regularly consume products with aspartame; Equal or NutraSweet? Y es Do you regularly consume products with artificial coloring??Yes Have you ever noticed worsening of your rash with these food items? N o E xercise What kind(s) of exercise do you perform regularly? w alking,age-appropriate participation in physical activites How often do you perform this exercise? d aily,every other day A re any of the following personal care products containing fragrance, dye or preservatives used regularly? Shampoo: Y es Conditioner: Y es Soap: Y es Laundry Detergent: Y es Fabric Softener: Y es Deodorant: Y es Perfume, cologne, after shave: Y es Air freshners or other scented products: Y es Hair coloring dyes or rinses: N o Other: N o O ccupation Are you currenly employed? 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 number of years?12 Do you believe that your current or previous occupation has any bearing on your illness? N o Do you have any pending or planned legal action against your current or former employer which pertains to your medical illness? N o Do you anticipate that your evaluation will be used in any legal action against your current employer or former employer? N o Have you had any job with high exposure to fumes, chemicals, dust or other noxious substances? N o Are you currently a student? N o E nvironmental History Living environment: a partment,with pets Where is the home located? [place] How long have you lived there? 2 -4 years How many people live in the home? 2 H ome description Basement: N o Smokers in the home? N o Smokers outside the home? N o Air Conditioning? Y es Central Air? Y es Forced air heating? Y es Gas or electric? e lectric Fireplace? N o Wood burning stove? N o Do you vacuum the home? Y es Air purification systems? N o Pillow and mattress dust-proof encasings? N o Do you use a humidifier? N o Do you own any pets? Y es What kind(s)? (click all that apply) c ats Where do your pets sleep? o ther room in home Fabric softeners used? Y es Plants in the home? N o Is there carpeting in your bedroom? Y es Do you have [id number]-opck carpeting? N o What is the age of your mattress (years)? 6 What material(s) are used to manufacture your bedding and pillow? n atural fiber (e.g. cotton) What is the age of your pillow (years)? 2 What material are your bedding items made of? n atural fiber (e.g. cotton) Do you sleep with quilts or blankets or a duvet? Y es What material? n atural fiber (e.g. cotton) How many cats? 1 * Medications: T akingWellbutrin XL 150 mg/24 hours tablet, extended release 1 tab(s) orally every 24 hoursAllergy Relief (Cetirizine) 10 mg tablet 1 tab(s) orally once a dayMedication List reviewed and reconciled with the patientTaking Wellbutrin XL 150 mg/24 hours tablet, extended release 1 tab(s) orally every 24 hoursTaking Allergy Relief (Cetirizine) 10 mg tablet 1 tab(s) orally once a dayMedication List reviewed and reconciled with the patient * Allergies: N .K.D.A.no[Allergies Verified] Objective: * Vitals: B P:114/77, HR:65 /min, Pulse Oximetry:96 %, Ht: 70 in, Wt: 227.8 lbs, BMI:32.68 Index. * Examination: G eneral examination: General appearance: p leasant, well-developed, well-nourished , male , in no apparent distress , speaking in full sentences. HEENT: p upils equal, round, and reactive to light and accommodation , conjunctiva are normal bilaterally , TMs without evidence of acute infection , clear rhinorrhea is present , no polyps noted , no septal perforation , posterior oropharynx is clear without exudates , erythema on pharyngeal wall, no exudates , tonsils are present , no tongue swelling , and uvula is midline. Oral cavity: n ormal, no lesions. Neck, thyroid : s upple, non-tender, no anterior cervical lymphadenopathy. Breasts : n ot performed. Heart: R RR, S1-S2, no murmurs, no rubs, no gallops. Lungs: c lear to auscultation in all lung ceballos, no wheezes or crackles. Neurologic exam: u nremarkable. Skin: n ormal, no rash, dermatographism, urticaria, angioedema. Back: n ormal. Extremities: n ormal ROM, no clubbing, no cyanosis, no edema. Genitalia: n ot performed. Influenza Vaccine not administered Assessment: * Assessment: 1. H ypertrophy of nasal turbinates - J34.3 (Primary) 2 . C hronic rhinitis - J31.0?3. S noring - R06.83 Plan: * Treatment: 2. C hronic rhinitis Notes: See plan above, rule out atopy 3. S noring Notes: Loud snoring and screener suggests intermittent risk for sleep apnea. Do BI for sleep and follow-up as above 4. O thers Continue Wellbutrin XL tablet, extended release, 150 mg/24 hours, 1 tab(s), orally, every 24 hours.? * Procedures: S kin Testing: Epicutaneous s kin testing was performed to negative control that resulted in a 7 mm wheal consistent with dermatographism so further skin testing could not per reliably performed . * Procedure Codes: G 8427 DOC MEDS VERIFIED W/PT OR [id number] FLU IMM NO ORD/ADMIN DOC GNS00576 PRICK TESTS, Units: 2.00 * Preventive Medicine: Counseling: M edication instruction: W atch for side effects of prescribed medications, Nasal steroid/antihistamine instruction: avoid septum, Hold all medications with antihistamine properties at least 1 week prior to upcoming skin testing at next visit. E ducation: G ENERAL EDUCATION: Our staff spent an additional 30 minutes in direct contact with the patient educating them on their current diagnoses and proper treatment and prevention of symptoms and the proper use of medications. P atient education material sent to portal? Y es C are goal follow up plan BMI management provided Y es Above Normal BMI Follow-up D ietary management education, guidance, and counseling * Follow Up: 6 Weeks (Reason: Evaluation and Management, Laboratory Review, Skin Testing: aeroallergens) * Billing Information: * Visit Code: 56549 Office Visit, Est Pt., Level 3. Modifiers: 25 * Procedure Codes: G8427 DOC MEDS VERIFIED W/PT OR RE. G8483 FLU IMM NO ORD/ADMIN DOC MURALI. 76829 PRICK TESTS. Units: 2.00. Images * mobile_09/17/2023 09:47:31 mobile_09/17/2023 09:47:46 * Electronically co-signed by Jamison Magdaleno MD, FAAAAI on 10/01/2023 at 11:20 AM BILINGUAL EXECUTIVE ASSISTANT Sign off status: Completed true * Provider: Curt Justice, DNP LANDSCAPER-C Date: 1 Generated for Tim daniel/Sis/Benismitting on: 0 01/15/2025 11:52 AM BILINGUAL EXECUTIVE ASSISTANT History and Physical Notes * HPI (History of Present Illness) Category Sub-Category Detail Notes Category Not es *Introduction I had the pleasure o f seeing Srinivas Davidson, a 32-year-old male with a past medical history of anxiety who presents with chronic upper airway symptoms concerning for allergies, here for follow-up evaluation. Srinivas was initially seen 3 weeks ago, and presented with complaints of nasal congestion, drainage and itchy, watery eyes. He perceives worse symptoms when exposed to pollen, dust, cats and dogs. Report symptoms have been occurring for the majority of his life. Skin testing has yet to be performed due to Srinivas continuing to take his antihistamines. He returns today to undergo skin testing to aeroallergens, however reports that he last took Zyrtec 4 days ago. Today, he reports no fevers, chills, night sweats or other constitutional symptoms Examination Category Sub-Category Detail Notes Category Not es General examination HEENT: pupils equal , round, and reactive to light and accommodation , conjunctiva are normal bilaterally , TMs without evidence of acute infection , clear rhinorrhea is present , no polyps noted , no septal perforation , posterior oropharynx is clear without exudates , erythema on pharyngeal wall, no exudates , tonsils are present , no tongue swelling , and uvula is midline Neck, thyroid : supple, non-tender, no anterior cervical lymphadenopathy Heart: RRR, S1-S2, no murmu rs, no rubs, no gallops Lungs: clear to auscultatio n in all lung ceballos, no wheezes or crackles Extremities: normal ROM, no clubb ing, no cyanosis, no edema General appearance: pleasant, well-devel oped, well-nourished , male , in no apparent distress , speaking in full sentences Skin: normal, no rash, gabino matographism, urticaria, angioedema Neurologic exam: unremarkable Oral cavity: normal, no lesions Breasts : not performed Back: normal Genitalia: not performed Influenza Vaccine not administered Reason:: Lala ent Reason Type of Patient Reason:: Refused
--- NOTE | 2025-01-15 12:20 | ED.MALEGU ---
HPI - Male Genitourinary General Chief complaint: Urogenital-Male Stated complaint: testicle pain, flank pain, known kidney stone Time Seen by Provider: 01/15/25 12:06 Source: patient Mode of arrival: ambulatory Limitations: no limitations History of Present Illness HPI Narrative: Patient referred to the emergency room by urgent care because of left testicular pain. Patient reports been having left lower back pain for the last few days also and left testicular pain. And dark urine. Patient had x-ray of the abdomen which showed 1 cm stone at the left renal pelvis region with additional small left lower pole renal stone Patient denies any fever, chills, nausea, vomiting or abdominal pain. Related Data Home Medications ?Medication ?Instructions ?Recorded ?Confirmed ?Last Taken ?Type atomoxetine 40 mg capsule 40 mg PO DAILY 06/24/24 06/24/24 Unknown History bupropion HCl 150 mg 24 hr tablet, mg PO 01/15/25 Unknown History extended release Allergies Allergy/AdvReac Type Severity Reaction Status Date / Time No Known Allergies Allergy Verified 01/15/25 11:44 Review of Systems Review of Systems: All systems reviewed & are unremarkable except as noted in HPI and below PMFSH Family History Family History Mother Depression Other Diabetes mellitus Social History Social History Smoking status: Never smoker Exam Narrative: General appearance: Well-developed, well-nourished Skin: Normal color Head: Normocephalic, nontraumatic Eyes: Clear conjunctiva ENT: Oropharynx normal, ears normal, nose normal Neck: Supple, nontender Chest and respiratory: Airway patent, no respiratory distress, no accessory muscle use Heart: Regular rate/rhythm Abdomen: Soft, nontender, no organomegaly, quiet bowel sounds, testicular exam showed no acute abnormality Vascular: Normal peripheral pulses, normal capillary refill. Musculoskeletal: Left lower back tenderness Neurologic: Alert and oriented ?3, CALIBRATOR BAROMETERS is normal as tested, no gross motor deficit Course Vital Signs Vital signs: Vital Signs Temperature 37.1 C 01/15/25 11:42 Pulse Rate 84 01/15/25 11:42 Respiratory Rate 16 01/15/25 11:42 Blood Pressure 139/77 01/15/25 11:42 Pulse Oximetry 100 01/15/25 11:42 Oxygen Delivery Room Air 01/15/25 11:42 Temperature 37.1 C 01/15/25 11:42 Pulse Rate 84 01/15/25 11:42 Respiratory Rate 16 01/15/25 11:42 Blood Pressure 139/77 01/15/25 11:42 Pulse Oximetry 100 01/15/25 11:42 Oxygen Delivery Room Air 01/15/25 11:42 MDM - Male Genitourinary MDM Narrative Medical decision making narrative: Left lower back pain, left testicular pain, history of kidney stone Vital signs are stable Physical examination consistent with slight tenderness left lower back, testicular exam is benign CT abdomen and pelvis without contrast showed 1 cm stone in the left renal pelvis without hydronephrosis Testicular ultrasound showed no acute abnormalities Urinalysis at the urgent care showed no acute abnormalities Patient to be discharge to follow-up with the urologist and to take Tylenol, ibuprofen as needed Differential Diagnosis Differential diagnosis: Likely other (As above) Medical Records Attestation: I reviewed the patient's medical records. Lab Data Attestation: I reviewed the patient's lab results. 01/15/25 13:17 01/15/25 13:17 Labs: Lab Results 01/15/25 Range/Units 13:17 WBC 6.9 (4.5-10.0) K/mm3 RBC 5.54 (4.6-6.20) M/mm3 Hgb 15.5 (14.0-18.0) g/dL Hct 44.7 (42.0-52.0) % MCV 80.7 (80-100) fl MCH 28.0 (26-34) pg MCHC 34.7 (32-36) g/dl RDW 12.1 (11.5-14.5) % Plt Count 322 (150-375) k/mm3 MPV 9.6 (7.4-10.4) fl Immature Gran % (Auto) 0.3 (0-0.5) % Neut % (Auto) 53.7 (45.5-73.1) % Lymph % (Auto) 31.6 (18.3-44.2) % [place] % (Auto) 8.9 H (2.6-8.5) % Eos % (Auto) 4.5 H (0-4.4) % Baso % (Auto) 1.0 (0.2-1.2) % Lymph # (Auto) 2.17 (0.9-3.2) K/mm3 [place] # (Auto) 0.6 (0.1-0.6) K/mm3 Eos # (Auto) 0.3 (0-0.3) K/mm3 Baso # (Auto) 0.1 (0.0-0.1) K/mm3 Abs Immat Gran (auto) 0.02 (0.00-0.031) K/mm3 Absolute Neuts (auto) 3.7 (1.3-6.7) K/mm3 Absolute Nucleated RBC 0.000 (0.0-0.012) K/mm3 Nucleated RBC % 0.0 (0.0-0.2) % Sodium 143 (137-145) mmol/L Potassium 3.8 (3.4-5.0) mmol/L Chloride 105 (98-107) mmol/L Carbon Dioxide 25 (22-30) mmol/L Anion Gap 13 H (4-12) mmol/L BUN 10 (9-20) mg/dL Creatinine 0.80 (0.7-1.3) mg/dL Estim Creat Clear Calc 134 ml/min Estimated GFR > 60 (59 - ) Glucose 85 (65-110) mg/dL Calcium 9.5 (8.4-10.2) mg/dL Total Bilirubin 0.7 (0.2-1.3) mg/dL AST 35 (17-59) U/L ALT 54 H (6-50) U/L Alkaline Phosphatase 60 (38-126) U/L Total Protein 8.0 (6.3-8.2) g/dL Albumin 4.9 (3.5-5.1) g/dL Imaging Data Radiologist's impression: Impressions Abdomen/Pelvis CT 01/15/25 13:21 IMPRESSION: 1. Stones in left kidney and left renal pelvis. No hydronephrosis. 2. Diffuse hepatic steatosis. Scrotum Ultrasound 01/15/25 13:25 IMPRESSION: 1. No etiology for the patient's symptoms. Critical Care Time Critical Care Time Critical Care Time: No Discharge Plan Discharge Clinical Impression: Kidney stone Patient Disposition: Home, Self-Care Condition: Stable Instructions: Kidney Stones (ED) Additional Instructions: Return if symptoms are worsening , call your urologist for appointment, take Tylenol, ibuprofen as as needed for aches and pain, continue home medications. Patient Language: Estonian Prescriptions: No Action atomoxetine 40 mg capsule 40 mg PO DAILY bupropion HCl 150 mg tablet extended release 24 hr PO Follow-up/Referrals: Vangie,EMORY Green [Primary Care Provider] - Efrem Turner MD [Physician] - 01/16/25 Stand Alone Forms: Work/School Release IP
--- OUTSIDE RECORDS SUMMARY | 2025-01-15 12:38 | XMS_ITS | Clinical Summary ---
Author Organization [facility] Address [address] [place] [id number] Care Team Providers Care Rn Field Case Manager Name Role Phone Unavailable Primary Care [...]
[2025-01-15 13:23] LABS: Basophils Absolute Auto 0.1 K/mm3 (0.0-0.1); Eosinophils Absolute Auto 0.3 K/mm3 (0-0.3); Eosinophils Percent Auto 4.5 % (0-4.4); Hematocrit 44.7 % (42.0-52.0); Hemoglobin 15.5 g/dL (14.0-18.0); Immature Granulocyte Absolute 0.02 K/mm3 (0.00-0.031); Immature Granulocyte Percent A 0.3 % (0-0.5); Lymphocytes Absolute Auto 2.17 K/mm3 (0.9-3.2); Lymphocytes Percent Auto 31.6 % (18.3-44.2); Mean Corpuscular HGB Conc 34.7 g/dl (32-36); Mean Corpuscular Volume 80.7 fl (80-100); Mean Platelet Volume 9.6 fl (7.4-10.4); Monocytes Absolute Auto 0.6 K/mm3 (0.1-0.6); Monocytes Percent Auto 8.9 % (2.6-8.5); Neutrophils Absolute Auto 3.7 K/mm3 (1.3-6.7); Neutrophils Percent Auto 53.7 % (45.5-73.1); Platelet Count Result 322 k/mm3 (150-375); Red Blood Count 5.54 M/mm3 (4.6-6.20); Red Cell Distribution Width 12.1 % (11.5-14.5); White Blood Count 6.9 K/mm3 (4.5-10.0)
[2025-01-15 13:36] LABS: Alanine Aminotransferase 54 U/L (6-50); Albumin Level 4.9 g/dL (3.5-5.1); Alkaline Phosphatase 60 U/L (38-126); Anion Gap 13 mmol/L (4-12); Aspartate Amino Transferase 35 U/L (17-59); Bilirubin,Total 0.7 mg/dL (0.2-1.3); Blood Urea Nitrogen 10 mg/dL (9-20); Calcium 9.5 mg/dL (8.4-10.2); Carbon Dioxide 25 mmol/L (22-30); Chloride 105 mmol/L (98-107); Estimated CRCL calculation 134 ml/min; Estimated Glomerular Filt Rate > 60; Glucose 85 mg/dL (65-110); Potassium 3.8 mmol/L (3.4-5.0); Sodium 143 mmol/L (137-145)
== END 2025-01-15 14:25 | disposition home or self-care (01) ==
PROVIDERS: Emergency Provider Emergency Medicine; PCP Physician Assistant
DX: N20.0 Calculus of kidney (principal); K76.0 Fatty (change of) liver, not elsewhere classified
CPT/HCPCS: 36415; 74176; 76870; 80053; 85025; 93976; 99284

== ENCOUNTER 2025-02-20 11:27 | Emergency (ER) | payer OTHER, SELFPAY ==
--- NOTE | ~2025-02-20 | CT_ITS ---
EXAMINATION: CT abdomen pelvis wo con DATE: 02/20/2025 13:29 INDICATION: Nephrolithiasis with left flank pain TECHNIQUE: Computed tomography (CT) of the abdomen and pelvis was performed without intravenous contr ast. Automated exposure control and iterative reconstruction technique were employed. The dose-length product was 305.49 mGy-cm. COMPARISON: 01/15/2025 FINDINGS: Mild discoid atelectasis at the lingula. Heart size is normal. No pericardial or pleural effusion. Mi ld diffuse hepatic steatosis. Gallbladder, spleen, pancreas and bilateral adrenal glands are normal. Bilateral renal cysts the largest on the right measuring 1.7 cm. 11 mm stone at the left renal pelvis and a couple additional stones measuring up to 3 mm stone at a lower pole calyces of the left kidney . No ureteral stones or hydronephrosis. Bowels are normal. Bladder is normal. No free intraperitonea l gas or fluid. No pathologically enlarged abdominal or pelvic lymphadenopathy. Bones are unremarkabl e. IMPRESSION: 1. No significant change in nonobstructing left nephrolithiasis with 11 mm stone at the left renal pe lvis. Reviewed, dictated and finalized at location B. IMPRESSION: 1. No significant change in nonobstructing left nephrolithiasis with 11 mm ston e at the left renal pelvis.
[2025-02-20 11:28] VITALS: BP 150/90; PULSE 78; RESP 20; TEMP 36.4; O2SAT 100
--- OUTSIDE RECORDS SUMMARY | 2025-02-20 12:19 | XMS_ITS ---
Author Organization [facility] Address [address] [place] [address] Care Team Providers Care Chemical Dependency Counselor Name Role Phone Shwetha Vences Primary Care Provider Kassandrav Jamison Amaro Unavailable [phone] Lucia Justice Unavailable [phone] Allergies No Known Allergies REASON FOR VISIT [...] 09/17/2023 Encounters Encounter Location Date Provider Diagnosis [facility] [address] [place] [address] 09/17/2023 Lucia Justice Hypertrophy of nasal turbinates [...] Notes * Srinivas DAVIDSONDOB:1990 (32 yo M)Acc No.[id number]:09/17/2023 Skin Testing Patient: Srinivas Tariq Provider: Curt Justice DNP URBAN FORESTER-C :1990 A ge:32 Y S ex:Male Date:09/17/2023 Address:[facility] [address], [address] Pcp:Shwetha Vences Subjective: * Chief Complaints: [...] your bedroom? Y es Do you have ytiz-xo-xomx carpeting? N o What is the age [...] n ot performed. Influenza Vaccine not administered R karen: P atient Reason T ype of Patient Reason: R efused Assessment: * Assessment: 1. H ypertrophy of nasal turbinates - J34.3 (Primary) 2 . C hronic rhinitis - J31.0?3. S swathi - R06.83 Plan: * Treatment: 2. C hronic rhinitis Notes: See plan above, rule out atopy 3. S swathi Notes: Loud snoring and screener suggests intermittent [...] G 8427 DOC MEDS VERIFIED W/PT OR VCG2622 FLU IMM NO ORD/ADMIN DOC [id number] PRICK TESTS, Units: 2.00 * Preventive Medicine: [...] aeroallergens) * Billing Information: * Visit Code: 44386 Office Visit, Est Pt., Level 3. Modifiers: 25 * Procedure Codes: G8427 DOC MEDS VERIFIED W/PT OR RE. G8483 FLU IMM NO ORD/ADMIN DOC MURALI. [id number] PRICK TESTS. Units: 2.00. Images * mobile_09/17/2023 09:47:31 mobile_09/17/2023 09:47:46 * Electronically co-signed by Jamison Magdaleno MD, FAAAAI on 10/01/2023 at 11:20 AM INTERVENTIONAL RADIOLOGY TECHNOLOGIST Sign off status: Completed true * Provider: Curt Justice DNP URBAN FORESTER-C Date: Generated for Tim daniel/Sis/eTransmitting on: 0 02/20/2025 12:19 PM CDT History and Physical Notes * HPI (History [...]
--- OUTSIDE RECORDS SUMMARY | 2025-02-20 12:19 | XMS_ITS | Patient Health Record ---
Author Organization [facility] Address [address] [place] [address] Care Team Providers Care Financial Service Representative Name Role Phone Vangie Shwetha Marcos Primary Care Provider Unav Jamison Amaro Unavailable [phone] ZZ-Migration, Provider Unavailable Unavailab le Allergies No [...] W/U Status Risk Notes Problem Anxiety disorder (392141156) Anxiety disorder, unspecified (F41.9) Active confirmed Problem Chronic rhinitis (19865154) Chronic rhinitis (J31.0) Active confirmed Problem Snoring (56733209) Snoring (R06.83) Active confirmed Encounters Encounter Location Date Provider Diagnosis [facility] [address] [place] [address] 05/10/2024 Provider ZZ-Migration Hypertrophy of nasal turbinates [...] Insured Coverage Start Date Coverage End Date [facility] [address] [address] [place] [address] [phone] [id number] Srinivas Davidson Self - patient is the insured Medical (General) History Medical History History ICD Code Anxiety disorder, unspecified F41.9 Surgical History Surgery Date(Month/Year) appendectomy 1996 Hospitalization History Reason Date(Month/Year) kidney stones 2018 & 2021
--- OUTSIDE RECORDS SUMMARY | 2025-02-20 12:19 | XMS_ITS | Clinical Summary ---
Author Organization [facility] Address [address] [place] [address] Care Team Providers Care Chocolatier Name Role Phone Unavailable Primary Care Provider [...]
--- OUTSIDE RECORDS SUMMARY | 2025-02-20 12:20 | XMS_ITS ---
Author Organization [facility] Address [address] [place] [address] Care Team Providers Care Mender Knit Goods Name Role Phone Shwetha Vences Primary Care Provider Kassandrav Jamison Amaro Unavailable [phone] ZZ-Migration, Provider Unavailable Unavailab le REASON FOR VISIT [facility] Conversion Encounter Medications Medication SIG (Take, Route, Frequency, Duration) Notes Start Date End Date Status Allergy Relief (Cetirizine) 10 MG 1 tab(s) orally once a day 08/29/2023 Active Wellbutrin XL 150 MG 1 tab(s) orally katiuska ry 24 hours 08/29/2023 Active Encounters Encounter Location Date Provider Diagnosis [facility] [address] [place] [address] 05/10/2024 Provider ZZ-Migration Hypertrophy of nasal turbinates [...] Notes * Xavier DAVIDSON:1990 (34 yo M)Acc No.[id number]:05/10/2024 Patient: Srinivas JASON Provider: Mary Juarez :1990 A ge:33 Y S ex:Male Date:05/10/2024 Address:[facility] [address], [address] [place], [place] [address] Pcp:Shwetha Vences Subjective: * Chief Complaints: * [...] Electronic signature of Prov nigelr ZZ-Migration on 02/20/2025 at 12:19 PM CDT Sign off status: Pending * Provider: Mary Juarez Date: 0 05/10/2024 Generated for Tim daniel/Sis/Benismitting on: 0 02/20/2025 12:19 PM CDT
--- OUTSIDE RECORDS SUMMARY | 2025-02-20 12:20 | XMS_ITS ---
Author Organization [facility] Address [address] [place] [address] Care Team Providers Care Instrument Mechanics Supervisor Name Role Phone Shwetha Vences Primary Care Provider Unav ailJamison Carrasco Unavailable [phone] Lucia Justice Unavailable [phone] REASON FOR VISIT Skin testing Encounters Encounter Location Date Provider Diagnosis [facility] [address] [place] [address] 11/13/2023 Lucia Justice Plan Of Treatment No Information Progress Notes * DAVIDSONSrinivas MEDINADOB:1990 (34 yo M)Acc No.[id number]:11/13/2023 Skin Testing Patient: Srinivas JASON Provider: ROSEANNE Donato :1990 A ge:33 Y S ex:Male Date:11/13/2023 Address:[address] [facility] Pcp:Shwetha Vences Subjective: * Chief Complaints: * 1 . Skin testing. * Medical History: Objective: * Vitals: Assessment: Plan: * Treatment: * Billing Information: * Visit Code: * Procedure Codes: * Electronic signature of Lucia Justice DNP, FNP-C on 02/20/2025 at 12:20 PM CDT Sign off status: Pending * Provider: Curt Justice DNP ELECTROPLATER-C Date: 1 01/14/2023 Generated for Tim daniel/Sis/Natalia on: 0 02/20/2025 12:20 PM CDT
[2025-02-20 13:23] LABS: Basophils Absolute Auto 0.1 K/mm3 (0.0-0.1); Basophils Percent Auto 1.3 % (0.2-1.2); Eosinophils Absolute Auto 0.3 K/mm3 (0-0.3); Eosinophils Percent Auto 4.6 % (0-4.4); Hematocrit 45.6 % (42.0-52.0); Hemoglobin 15.6 g/dL (14.0-18.0); Immature Granulocyte Absolute 0.03 K/mm3 (0.00-0.031); Immature Granulocyte Percent A 0.4 % (0-0.5); Lymphocytes Absolute Auto 1.93 K/mm3 (0.9-3.2); Lymphocytes Percent Auto 25.8 % (18.3-44.2); Mean Corpuscular HGB Conc 34.2 g/dl (32-36); Mean Corpuscular Hemoglobin 28.2 pg (26-34); Mean Corpuscular Volume 82.3 fl (80-100); Mean Platelet Volume 9.8 fl (7.4-10.4); Monocytes Absolute Auto 0.7 K/mm3 (0.1-0.6); Monocytes Percent Auto 9.2 % (2.6-8.5); Neutrophils Absolute Auto 4.4 K/mm3 (1.3-6.7); Neutrophils Percent Auto 58.7 % (45.5-73.1); Platelet Count Result 318 k/mm3 (150-375); Red Blood Count 5.54 M/mm3 (4.6-6.20); Red Cell Distribution Width 12.5 % (11.5-14.5); White Blood Count 7.5 K/mm3 (4.5-10.0)
[2025-02-20 13:26] LABS: Add Urine Microscopic? YES; Appearance Urine Clear (Clear); Bacteria Urine None Seen /hpf; Bilirubin Urine Negative (Negative); Blood Urine 3+ (Negative); Color Urine Yellow (Yellow); Glucose Urine UA Negative (Negative); Ketones Urine Negative (Negative); Leukocyte Esterase Ur Negative LEU/UL (Negative); Nitrate Urine Negative (Negative); Non Pathogenic Casts 0-2; Protein Urine Trace mg/dL (Negative); RBC Urine 51-100 /hpf (0-2); Specific Grav Ur 1.011 (1.001-1.035); Squamous Epithelial Cell Urine None Seen /hpf (Few); Urobilinogen Urine 0.2 mg/dL (<2.0); WBC Urine 0-5 /hpf (0-3); pH Urine 6.5 (5.0-9.0)
[2025-02-20 13:33] LABS: Alanine Aminotransferase 68 U/L (6-50); Albumin Level 5.1 g/dL (3.5-5.1); Alkaline Phosphatase 58 U/L (38-126); Anion Gap 11 mmol/L (4-12); Aspartate Amino Transferase 36 U/L (17-59); Bilirubin,Total 0.7 mg/dL (0.2-1.3); Blood Urea Nitrogen 15 mg/dL (9-20); Calcium 9.6 mg/dL (8.4-10.2); Carbon Dioxide 27 mmol/L (22-30); Chloride 104 mmol/L (98-107); Estimated CRCL calculation 118 ml/min; Estimated Glomerular Filt Rate > 60; Glucose 93 mg/dL (65-110); Potassium 4.2 mmol/L (3.4-5.0); Sodium 142 mmol/L (137-145)
--- NOTE | 2025-02-20 16:40 | ED.MALEGU ---
HPI - Male Genitourinary General Chief complaint: Urogenital-Male Stated complaint: kidney stones Time Seen by Provider: 02/20/25 15:57 History of Present Illness HPI Narrative: 34-year-old otherwise healthy male with a past medical history including kidney stones presenting to the emergency department with left-sided flank pain persisting since last month. He was diagnosed with a kidney stone last month and told that would pass on its own. He knows that he has not passed any stones any still having intermittent colicky pain is left flank. No dysuria hematuria. No nausea or vomiting. No abdominal pain, testicular pain, chest pain shortness a breath. Has not seen a specialist for this. Was otherwise in his normal state of health. Related Data Home Medications ?Medication ?Instructions ?Recorded ?Confirmed ?Last Taken ?Type atomoxetine 40 mg capsule 40 mg PO DAILY 06/24/24 06/24/24 Unknown History bupropion HCl 150 mg 24 hr tablet, mg PO 01/15/25 Unknown History extended release Allergies Allergy/AdvReac Type Severity Reaction Status Date / Time No Known Allergies Allergy Verified 01/15/25 11:44 Review of Systems Review of Systems: As reviewed above in HPI [facility] Family History Family History Mother Depression Other Diabetes mellitus Social History Social History Smoking status: Never smoker Exam Narrative: GENERAL: [Well-appearing, well-nourished, and in no acute distress.] HEAD: [Normocephalic, atraumatic.] EYES: [PERRLA and EOMI.] ENT: Nares clear, no rhinorrhea or epistaxis. Mucous membranes moist. NECK: Supple. CHEST: [Clear to auscultation. No respiratory distress.] HEART: [Regular rate and rhythm]. No murmur heard. [Normal peripheral pulses.] ABDOMEN: [Soft, nondistended], [nontender], [No rigidity or guarding] EXTREMITIES: Normal range of motion. [No edema.] SKIN: Warm, dry, no rash. NEURO: [No focal deficits]. Alert and oriented [x3.] PSYCH: [Normal mood and affect.] Course Vital Signs Vital signs: Vital Signs Temperature 36.4 C 02/20/25 11:28 Pulse Rate 78 02/20/25 11:28 Respiratory Rate 20 02/20/25 11:28 Blood Pressure 150/90 H 02/20/25 11:28 Pulse Oximetry 100 02/20/25 11:28 Oxygen Delivery Room Air 02/20/25 11:28 Temperature 36.4 C 02/20/25 11:28 Pulse Rate 78 02/20/25 11:28 Respiratory Rate 20 02/20/25 11:28 Blood Pressure 150/90 H 02/20/25 11:28 Pulse Oximetry 100 02/20/25 11:28 Oxygen Delivery Room Air 02/20/25 11:28 MDM - Male Genitourinary MDM Narrative Medical decision making narrative: 34-year-old male with history of kidney stones presenting to the emergency room with left flank pain. He has had similar symptoms last month and feels like this is a recurrence of the same pain. Has been taking Tylenol ibuprofen without any relief of symptoms. No dysuria hematuria. No chest pain shortness a breath. No nausea vomiting. Examination is benign, reassuring vital signs, no tachycardia, fever or hypoxia. Suspicion is presently for kidney stone, obstructing stone, pyelonephritis, ureteral stone, bladder stone, urinary infection. Workup was ordered including urinalysis, CBC, CMP, CT scan without contrast. Patient states his pain is 1/10 presently but sometimes goes up to 5/10. Patient will be given Toradol for analgesia while workup underway. Workup shows no leukocytosis or anemia. Normal platelet count. Electrolytes within normal limits, normal renal function, normal hepatic function. Normal glucose. Urinalysis without signs of infection. CT scan shows no significant change in the nonobstructing left renal stone at 11 mm within the left renal pelvis. Patient's symptoms are consistent with renal colic from this. He will need to follow-up with a urologist for potential intervention such as lithotripsy or other treatments. He will be given Toradol and oxycodone as needed in addition to Flomax. Provided urology follow-up instructions and safe for discharge at this time. Medical Records Attestation: I reviewed the patient's medical records. Lab Data Attestation: I reviewed the patient's lab results. 02/20/25 13:13 02/20/25 13:13 Labs: Lab Results 03/28/25 Range/Units 13:13 WBC 7.5 (4.5-10.0) K/mm3 RBC 5.54 (4.6-6.20) M/mm3 Hgb 15.6 (14.0-18.0) g/dL Hct 45.6 (42.0-52.0) % MCV 82.3 (80-100) fl MCH 28.2 (26-34) pg MCHC 34.2 (32-36) g/dl RDW 12.5 (11.5-14.5) % Plt Count 318 (150-375) k/mm3 MPV 9.8 (7.4-10.4) fl Immature Gran % (Auto) 0.4 (0-0.5) % Neut % (Auto) 58.7 (45.5-73.1) % Lymph % (Auto) 25.8 (18.3-44.2) % [place] % (Auto) 9.2 H (2.6-8.5) % Eos % (Auto) 4.6 H (0-4.4) % Baso % (Auto) 1.3 H (0.2-1.2) % Lymph # (Auto) 1.93 (0.9-3.2) K/mm3 [place] # (Auto) 0.7 H (0.1-0.6) K/mm3 Eos # (Auto) 0.3 (0-0.3) K/mm3 Baso # (Auto) 0.1 (0.0-0.1) K/mm3 Abs Immat Gran (auto) 0.03 (0.00-0.031) K/mm3 Absolute Neuts (auto) 4.4 (1.3-6.7) K/mm3 Absolute Nucleated RBC 0.000 (0.0-0.012) K/mm3 Nucleated RBC % 0.0 (0.0-0.2) % Sodium 142 (137-145) mmol/L Potassium 4.2 (3.4-5.0) mmol/L Chloride 104 (98-107) mmol/L Carbon Dioxide 27 (22-30) mmol/L Anion Gap 11 (4-12) mmol/L BUN 15 D (9-20) mg/dL Creatinine 0.91 (0.7-1.3) mg/dL Estim Creat Clear Calc 118 ml/min Estimated GFR > 60 (59 - ) Glucose 93 (65-110) mg/dL Calcium 9.6 (8.4-10.2) mg/dL Total Bilirubin 0.7 (0.2-1.3) mg/dL AST 36 (17-59) U/L ALT 68 H (6-50) U/L Alkaline Phosphatase 58 (38-126) U/L Total Protein 8.0 (6.3-8.2) g/dL Albumin 5.1 (3.5-5.1) g/dL Urine Color Yellow (Yellow) Urine Appearance Clear (Clear) Urine pH 6.5 (5.0-9.0) Ur Specific [place] 1.011 (1.001-1.035) Urine Protein Trace (Negative) mg/dL Urine Glucose (UA) Negative (Negative) mg/dL Urine Ketones Negative (Negative) mg/dL Ur Blood (Man) 3+ H (Negative) Urine Nitrate Negative (Negative) Urine Bilirubin Negative (Negative) Urine Urobilinogen 0.2 (<2.0) mg/dL Leukocyte Esterase Rfl Negative (Negative) AVIS/UL Urine RBC 51-100 H (0-2) /hpf Urine WBC 0-5 (0-3) /hpf Ur Squamous Epith Cells None seen (Few) /hpf Urine Bacteria None seen /hpf Urine Casts 0-2 Imaging Data Attestation: I personally reviewed and interpreted this imaging study as follows: My impression: Impressions Abdomen/Pelvis CT 02/20/25 13:37 IMPRESSION: 1. No significant change in nonobstructing left nephrolithiasis with 11 mm stone at the left renal pelvis. Discharge Plan Discharge Clinical Impression: Left nephrolithiasis, Renal colic on left side Patient Disposition: Home, Self-Care Condition: Stable Instructions: Antibiotic Form, Kidney Stones (ED), Lithotripsy (DC) Additional Instructions: Your CT scan shows a 11 mm stone in the left renal pelvis which is likely causing her symptoms of renal colic. There is no signs of obstruction, no urinary tract infection, normal laboratories including kidney function. We will send you home with as needed pain medications and refer you to urologist. Call their office for close outpatient follow-up visit and potential interventions. If he exhibits any new or worsening concerns return to the ER otherwise follow-up with your regular doctor and Urology office Patient Language: Divehi Prescriptions: New ketorolac 10 mg tablet 10 mg PO Q8H PRN (Reason: pain) 5 Days Qty: 20 0RF Rx Instructions: maximum total duration of 5 days from all oral, intranasal, or parenteral formulations tamsulosin [Flomax] 0.4 mg capsule 0.4 mg PO DAILY Qty: 20 0RF oxycodone 5 mg tablet 5 mg PO Q8H PRN (Reason: pain) Qty: 10 0RF No Action atomoxetine 40 mg capsule 40 mg PO DAILY bupropion HCl 150 mg tablet extended release 24 hr PO Follow-up/Referrals: Vangie,EMORY Green [Primary Care Provider] - Ernestina Murray MD [Physician] - 1 Week (11mm left stone) Efrem Turner MD [Physician] - 1 Week (11mm left stone) Time of Disposition: 16:46
--- OUTSIDE RECORDS SUMMARY | 2025-02-20 16:48 | XMS_ITS | Clinical Summary ---
Author Organization [facility] Address [address] [place] [address] Care Team Providers Care Falsework Builder Name Role Phone Unavailable Primary Care Provider [...]
[2025-02-20] MEDS: KETOROLAC 15 MG/ML VIAL (*BKC) IV PUSH (16:50)
[2025-02-20 17:05] VITALS: BP 140/80; PULSE 75; RESP 16; O2SAT 100
== END 2025-02-20 17:06 | disposition home or self-care (01) ==
PROVIDERS: Physician Assistant; Emergency Provider Student in an Organized Health Care Education/Training Program; PCP Physician Assistant
DX: N20.0 Calculus of kidney (principal)
CPT/HCPCS: 36415; 74176; 80053; 81001; 85025; 96374; 99284; J1885

== ENCOUNTER 2025-04-13 16:58 | Outpatient (CLI) | payer OTHER, SELFPAY ==
--- OUTSIDE RECORDS SUMMARY | 2025-04-13 17:00 | XMS_ITS ---
Author Organization [facility] [place] ([address]) Address [address] [place] [address] Care Team Providers Care Slip Injector And Applicator Name Role Phone Shwetha Vences Primary Care Provider Jamison Hernandez Unavailable [phone] ZZ-Migration, Provider Unavailable Unavailab [facility] Conversion Encounter Medications Medication SIG (Take, Route, Frequency, Duration) Notes Start Date End Date Status Allergy Relief (Cetirizine) 10 MG 1 tab(s) orally once a day 08/29/2023 Active Wellbutrin XL 150 MG 1 tab(s) orally katiuska ry 24 hours 08/29/2023 Active Encounters Encounter Location Date Provider Diagnosis [address] [address] 05/10/2024 Provider ZZ-Migration Hypertrophy of nasal turbinates [...] Notes * Xavier DAVIDSON:1990 (34 yo M)Acc No.[id number]:05/10/2024 Patient: Srinivas JASON Provider: Mary Juarez :1990 A ge:33 Y S ex:Male Date:05/10/2024 Address:[facility] [address], [address] [place], [place] [address] Pcp:Shwetha Vences Subjective: * Chief Complaints: * [facility] . [facility]. * Medical History: Objective: * Vitals: Assessment: * Assessment: 1. H ypertrophy of nasal turbinates - J34.3 (Primary) Plan: * Treatment: 2. O thers Continue Wellbutrin XL Tablet Extended Release 24 Hour, 150 MG, 1 tab(s), orally, every 24 hours. * Billing Information: * Visit Code: * Procedure Codes: * Electronic signature of Prov ider ZZ-Migration on 04/13/2025 at 05:00 PM CDT Sign off status: Pending * Provider: Mary Juarez Date: 0 05/10/2024 Generated for Tim daniel/Sis/Jose Eduardoitting on: 04/13/2025 05:00 PM CDT
--- OUTSIDE RECORDS SUMMARY | 2025-04-13 17:00 | XMS_ITS ---
Author Organization [facility] [place] ([address]) Address [address] [place] [address] Care Team Providers Care Treasury Accountant Name Role Phone Shwetha Vences Primary Care Provider Unav Jamison Amaro Unavailable [phone] Lucia Justice [phone] REASON FOR VISIT Skin testing Encounters Encounter Location Date Provider Diagnosis [facility] [address] [place] [address] 11/13/2023 Lucia Justice Plan Of Treatment No Information Progress Notes * DAVIDSONSrinivasDOB:1990 (34 yo M)Acc No.[id number]:11/13/2023 Skin Testing Patient: Srinivas JASON Provider: ROSEANNE Donato :1990 A ge:33 Y S ex:Male Date:11/13/2023 Address:[address] [facility] Pcp:Shwetha Vences Subjective: * Chief Complaints: * 1 . Skin testing. * Medical History: Objective: * Vitals: Assessment: Plan: * Treatment: * Billing Information: * Visit Code: * Procedure Codes: * Electronic signature of Lucia Justice DNP, FNP-C on 04/13/2025 at 05:00 PM CDT Sign off status: Pending * Provider: Curt Justice DNP COURT ADVOCATE-C Date: 1 01/14/2023 Generated for Tim daniel/Sis/Natalia on: 0 04/13/2025 05:00 PM CDT
--- OUTSIDE RECORDS SUMMARY | 2025-04-13 17:00 | XMS_ITS | Patient Health Record ---
Author Organization [facility] [place] ([address]) Address [address] [place] [address] Care Team Providers Care Die Keeper Name Role Phone Shwetha Vences Primary Care Provider Jamison Hernandez Unavailable [phone] ZZ-Migration, Provider Unavailable Unavailab le Allergies No [...] W/U Status Risk Notes Problem Anxiety disorder (142251783) Anxiety disorder, unspecified (F41.9) Active confirmed Problem Chronic rhinitis (17850539) Chronic rhinitis (J31.0) Active confirmed Problem Snoring (77535131) Snoring (R06.83) Active confirmed Encounters Encounter Location Date [facility] [id number] [facility]/10/[facility]24 Provider RAQUEL-Ann Hypertrophy of nasal turbinates J34.3 Assessments Encounter [...] Insured Coverage Start Date Coverage End Date [facility] [address] [address] [place] [address] [id number] Srinivas Davidson Self - patient is the insured Medical (General) History Medical History History ICD Code Anxiety disorder, unspecified F41.9 Surgical History Surgery Date(Month/Year) appendectomy 1996 Hospitalization History Reason Date(Month/Year) kidney stones 2018 & 2021
--- OUTSIDE RECORDS SUMMARY | 2025-04-13 17:00 | XMS_ITS | Clinical Summary ---
Author Organization [facility] Address [address] [place] [address] Care Team Providers Care Tutoring Clinician Name Role Phone Unavailable Primary Care Provider [...] - 19+ 3-dose series) 2009 COVID-19 Vaccine ( - 2023-2 5 season) 2024 HPV Vaccines Aged Out No longer eligi ble based on patient's age to complete this topic Meningococcal B Vaccine Aged Out No l onger eligible based on patient's age to complete this topic Meningococcal Vaccine Aged Out No austin maureen eligible based on patient's age to complete this topic Pneumococcal Vaccine: Pediat rics (0 to 5 Years) and At-Risk Patients (6 to 49 Years) Aged Out No longer eligible b ased on patient's age to complete this topic RSV Immunizations Under 20 Months Aged Out No longer eligible based on patient's age to complete this topic
[2025-04-13 18:22] LABS: Prothrombin Time 13.7 Seconds (11.1-14.7)
[2025-04-13 18:23] LABS: Partial Thromboplastin Time 25.8 Seconds (22.3-36.8)
== END 2025-04-13 16:59 | disposition home or self-care (01) ==
LOC: ANHLAB 16:59
PROVIDERS: PCP Physician Assistant; Visit Provider Urology
DX: N20.0 Calculus of kidney (principal)
CPT/HCPCS: 36415; 85610; 85730; 87086

== ENCOUNTER 2025-04-17 00:32 | Day surgery (SDC) | payer OTHER, SELFPAY ==
--- NOTE | 2025-04-08 15:09 | PC.NURSE ---
Addendum entered by Trista Louis RN 04/15/25 09:17: Late entry from 04/09 at 1210 - Left message for patient to stop Ketorolac on Sunday, 04/10. Original Note: Report to the Outpatient Waiting Room, entrance under the green pavilion located off [facility], at time _0930 on date 04/17/25_. Planned Procedure Time: _1130_.? Time changes happen often and if your time is changed the preop area will call you the afternoon before. - You and your visitor will be asked to self-screen and do not enter if you have any COVID symptoms. Please call surgeon if you need to reschedule. - A mask is optional within the hospital at this time. Patients may have clear liquids (water, carbonated beverages, clear teas, apple juice) until 3 hours prior to surgery with a maximum of 20 ounces. - No food from midnight until time of surgery and no smoking, or chewing tobacco (or any form of nicotine). No chewing gum, candy or mints. - Infants may have breast milk until 4 hours before surgery, formula 6 hours prior to surgery. - Children will be allowed to drink immediately following surgery.? If applicable, please bring a bottle or sippy cup to assist with drinking. Juice, water, soda, and popsicles are readily available.? For infants on formula, please bring formula the day of surgery.? Pacifiers are allowed. Take only the following medications with a SIP of water on the morning of surgery: _ATOMOXETINE, BUPROPION, PAIN MED IF NEEDED DO NOT STOP ANY OF YOUR OTHER PRESCRIPTION MEDICATIONS PRIOR TO SURGERY EXCEPT THE FOLLOWING Hold all vitamins and supplements for 3 days per anesthesiologist. Medications to discontinue per physician ___KETOROLAC Date to take last dose____04/13/25 Please no make-up, nail citizen of [place], hairspray, perfume, deodorant, or body powder the day of surgery.? No jewelry (including any body piercings) or valuables the day of surgery, leave them at home.? Please take a shower or bath the night before, or the morning of, surgery with an antibacterial soap.? Wear comfortable, loose fitting clothing.? Children are encouraged to wear pajamas. - Jewelry must be removed prior to entering the operating room.? Rings and piercings that are not removed may be cut off. - The hospital will not accept responsibility for valuables.? - Please leave all valuables, including medications, at home the day of surgery. If you are going home after surgery, a licensed mule driver must drive you home.? - NO public transportation without another adult if you receive anesthesia. - We recommend that an adult stay with you for 24 hours following discharge. - We also recommend that you do not drive, make important decision, drink alcoholic beverages, or take any drugs that were not prescribed by your health care provider for at least 24 hours after your discharge time. For Pediatric surgeries, we recommend two adults accompany the child home. Follow any additional instructions given to you from your surgeon. Telephone instructions given to __PATIENT___and asked if any additional questions and then verbalized understanding. Patient advised to call surgeon office or pre surgery nurse liaison [phone] if any additional questions.
[2025-04-08 15:22] VITALS: BMI 32.2
[2025-04-17] VITALS (9 sets, daily range): BP systolic 94–175; BP diastolic 43–85; PULSE 63–82; RESP 11–17; TEMP 36.4–36.5; O2SAT 96–100
--- NOTE | ~2025-04-17 | XR_ITS ---
XR abdomen/kub 1V 04/17/2025 08:28 Indication: Preop lithotripsy. Procedure: KUB Comparison: No prior studies for comparison. Findings: There are left renal stones, largest measuring 11 mm. Bowel gas pattern nonobstructive. The re are pelvic phleboliths. No acute osseous abnormality. Impression: 1: Left nephrolithiasis. Reviewed, dictated and finalized at location [] Impression: 1: Left nephrolithiasis.
--- OUTSIDE RECORDS SUMMARY | 2025-04-17 00:35 | XMS_ITS ---
Author Organization [facility] [place] ([address]) Address [address] [place] [address] Care Team Providers Care Strawberry Grower Name Role Phone Shwetha Vences Primary Care Provider Unav Jamison Amaro Unavailable [phone] Lucia Justice [phone] REASON FOR VISIT Skin testing Encounters Encounter Location Date Provider Diagnosis [facility] [address] [place] [address] 11/13/2023 Lucia Justice Plan Of Treatment No Information Progress Notes * DAVIDSONSrinivas MEDINADOB:1990 (34 yo M)Acc No.[id number]:11/13/2023 Skin Testing Patient: Srinivas JASON Provider: ROSEANNE Donato :1990 A ge:33 Y S ex:Male Date:11/13/2023 Address:[address] [facility] Pcp:Shwetha Vences Subjective: * Chief Complaints: * 1 . Skin testing. * Medical History: Objective: * Vitals: Assessment: Plan: * Treatment: * Billing Information: * Visit Code: * Procedure Codes: * Electronic signature of Lucia Justice DNP, FNP-C on 04/17/2025 at 12:35 AM CDT Sign off status: Pending * Provider: Curt Justice DNP SALES ENGINEER ACCOUNT MANAGER-C Date: 1 01/14/2023 Generated for Tim daniel/Sis/Natalia on: 0 04/17/2025 12:35 AM CDT
--- OUTSIDE RECORDS SUMMARY | 2025-04-17 00:35 | XMS_ITS | Patient Health Record ---
Author Organization [facility] [place] ([address]) Address [address] [place] [address] Care Team Providers Care Assistant Store Manager Sales Name Role Phone Shwetha Vences Primary Care Provider Jamison Hernandez Unavailable [phone] ZZ-Migration, Provider Unavailable Unavailab le Allergies No [...] W/U Status Risk Notes Problem Anxiety disorder (230242217) Anxiety disorder, unspecified (F41.9) Active confirmed Problem Chronic rhinitis (05537633) Chronic rhinitis (J31.0) Active confirmed Problem Snoring (10055723) Snoring (R06.83) Active confirmed Encounters Encounter Location Date [facility] [id number] [facility] Provider RAQUEL-Ann Hypertrophy of nasal turbinates [...] Insured Coverage Start Date Coverage End Date [facility] [address] [address] [place] [address] [id number] Srinivas Davidson Self - patient is the insured Medical (General) History Medical History History ICD Code Anxiety disorder, unspecified F41.9 Surgical History Surgery Date(Month/Year) appendectomy 1996 Hospitalization History Reason Date(Month/Year) kidney stones 2018 & 2021
--- OUTSIDE RECORDS SUMMARY | 2025-04-17 00:35 | XMS_ITS ---
Author Organization [facility] [place] ([address]) Address [address] [place] [address] Care Team Providers Care Engineer First Assistant Name Role Phone Shwetha Vences Primary Care Provider Jamison Hernandez Unavailable [phone] ZZ-Migration, Provider Unavailable Unavailab [facility]IT [facility] Conversion Encounter Medications Medication SIG (Take, Route, Frequency, Duration) Notes Start Date End Date Status Allergy Relief (Cetirizine) 10 MG 1 tab(s) orally once a day 08/29/2023 Active Wellbutrin XL 150 MG 1 tab(s) orally katiuska ry 24 hours 08/29/2023 Active Encounters Encounter Location Date Provider Diagnosis [address] [address] 05/10/2024 Provider ZZ-Migration Hypertrophy of nasal turbinates [...] Notes * Xavier DAVIDSON:1990 (34 yo M)Acc No.[id number]:05/10/2024 Patient: Srinivas JASON Provider: Mary Juarez :1990 A ge:33 Y S ex:Male Date:05/10/2024 Address:[facility] [address] [place], [place] [id number] Pcp:Shwetha Vences Subjective: * Chief Complaints: * 1 . [facility] * Medical History: Objective: * Vitals: Assessment: * Assessment: 1. H ypertrophy of nasal turbinates - J34.3 (Primary) Plan: * Treatment: 2. O thers Continue Wellbutrin XL Tablet Extended Release 24 Hour, 150 MG, 1 tab(s), orally, every 24 hours.? * Billing Information: * Visit Code: * Procedure Codes: * Electronic signature of Prov nigelr ZZ-Migration on 04/17/2025 at 12:35 AM CDT Sign off status: Pending * Provider: Mary Juarez Date: 0 05/10/2024 Generated for Tim daniel/Sis/Jose Eduardoitting on: 0 04/17/2025 12:35 AM CDT
--- NOTE | 2025-04-17 08:21 | WPDHPUPDATE1 ---
History and Physical Update Update Date/Time: 04/17/25 08:21 History and Physical has been reviewed, including an updated exam of the patient. There are NO changes in the patient's condition. Risks, benefits, and alternatives have been discussed and questions answered. Patient agrees to proceed with procedure.
[2025-04-17] MEDS: LACTATED RINGERS 1,000 ML 30 ML IV CONT ×2 (09:00→10:34)
--- NOTE | 2025-04-17 09:44 | P.PNAN_ITS ---
Anes - Initial Pre Proc Eval Procedure: Operation Date: 04/17/25 10:30 Proposed Procedures p Left Extracorporeal Shock Wave Lithotripsy - Efrem Turner MD Date/Time: 04/17/25 09:44 Surgeon: Efrem Turner MD Pre Op Diagnosis: left renal stone Patient Data Age: 34 Gender: M Height: 1.78 m Weight: 97 kg Last Vital Signs Temp 36.4 C L 04/17/25 08:56 Pulse 79 04/17/25 08:56 Resp 14 04/17/25 08:56 BP 175/76 H 04/17/25 08:56 Pulse Ox 100 04/17/25 08:56 O2 Del Method Room Air 04/17/25 08:56 Allergies Allergy/AdvReac Type Severity Reaction Status Date / Time No Known Allergies Allergy Verified 04/17/25 09:01 Home Medications ?Medication ?Instructions ?Recorded ?Confirmed ?Type atomoxetine 40 mg capsule 40 mg PO DAILY 06/24/24 04/08/25 History bupropion HCl 150 mg 24 hr tablet, 150 mg PO DAILY 01/15/25 04/08/25 History extended release ketorolac 10 mg tablet 10 mg PO Q8H PRN pain 5 days #20 02/20/25 04/08/25 Rx tabs oxycodone 5 mg tablet 5 mg PO Q8H PRN pain #10 tabs 02/20/25 04/08/25 Rx Patient hx anesthesia problems: none Family hx anesthesia problems: none Results Review: All pre-operative results and documents have been reviewed as part of the pre- operative evaluation. [facility] Family History Family History Mother Depression Other Diabetes mellitus Social History Social History Smoking status: Never smoker Alcohol intake: current Alcohol use details: 6 PER YR Living arrangements: with family Anes - Eval Final PreProcedure Day of Procedure 04/17/25 09:44 Patient weight: obese Heart: regular rate and rhythm Lungs: clear to auscultation Airway: Mallampati scale class II Neurological: alert and oriented Last oral intake: >/= 8 hours ASA classification: III Emergent: no Anesthetic plan: proceed Anesthesia type and monitoring: general LMA and standard monitoring Results Review: All pre-operative results and documents have been reviewed as part of the pre- operative evaluation. Informed Consent: The patient's anesthetic plan and its attendant risks and benefits were discussed with the patient/family/POA. Questions were solicited and answers provided to the satisfaction of the patient/family/POA.
[2025-04-17] MEDS: ceFAZolin 2 GM/D5W 50 ML 2 GM/50 ML BAG IVPB (09:45)
--- NOTE | 2025-04-17 10:26 | W.PM.PROC2 ---
Procedure Note - Detailed Date of Procedure 04/17/25 Pre-op Diagnosis left renal stone Post-op Diagnosis Same Procedure Performed Lithotripsy of left renal calculus Surgeon Efrem Turner MD Anesthesia General Description of Procedure Patient was taken to the operative suite correctly identified. Once anesthesia was obtained the stone was localized in both planes. Two thousand five hundred shocks were given. There appeared to be fragmentation. He was taken recovery stable condition. This completes dictation. Please send a copy of op note to my office Estimated Blood Loss 0 Drains No Packing No Pathology None sent Complications No immediate complications Condition Stable Disposition PACU
== END 2025-04-17 12:20 | disposition home or self-care (01) ==
PROVIDERS: PCP Physician Assistant; Visit Provider Urology
PROC: (CPT 50590; principal; 2025-04-17 10:30)
DX: N20.0 Calculus of kidney (principal); G47.30 Sleep apnea, unspecified; E66.9 Obesity, unspecified; Z68.30 Body mass index [BMI] 30.0-30.9, adult; Z79.891 Long term (current) use of opiate analgesic; Z98.890 Other specified postprocedural states
CPT/HCPCS: 50590; 74018; J0690; J2250; J3010; J7120

== ENCOUNTER 2025-04-18 02:56 | Emergency (ER) | payer OTHER, SELFPAY ==
[2025-04-18] VITALS (31 sets, daily range): BP systolic 123–167; BP diastolic 76–100; PULSE 55–103; RESP 11–18; TEMP 37; O2SAT 93–99
--- NOTE | ~2025-04-18 | CT_ITS ---
EXAMINATION: CT abdomen pelvis wo con DATE: 04/18/2025 03:39 INDICATION: Left flank pain post lithotripsy TECHNIQUE: Computed tomography (CT) of the abdomen and pelvis was performed without intravenous contr ast. Automated exposure control and iterative reconstruction technique were employed. The dose-length product was 1030.26 mGy-cm. COMPARISON: 02/20/2025 FINDINGS: Lung bases are clear. Heart size normal. No pericardial or pleural effusion. Mild diffuse hepatic grisel atosis. Gallbladder, spleen, pancreas, bilateral adrenal glands are normal. 1.7 similar right renal c yst. There at least 10 left renal stones the largest a 10 mm stone at a lower pole calyx and also inc luding a ureteropelvic junction resulting in mild left hydronephrosis. A few of these calcifications are seen in nondependent position along the distal renal pelvis suggesting these could represent pleu ral calcifications are calcified at the periphery of a large centrally low-density stone. No stones a long the more distal left ureter or at the right kidney or ureter. Bowels are unremarkable with no ob struction. The appendix is not visualized. No pericecal inflammatory change to suggest acute appendic itis. Decompressed bladder is unremarkable. No free intraperitoneal gas or fluid. No pathologically e nlarged abdominal or pelvic lymphadenopathy. Mild thoracic and lumbar spondylosis. IMPRESSION: 1. Left nephrolithiasis with 5 mm obstructing stone at the ureteropelvic junction resulting in mild l eft hydronephrosis. Reviewed, dictated and finalized at location A. IMPRESSION: 1. Left nephrolithiasis with 5 mm obstructing stone at the ureteropelvic juncti on resulting in mild left hydronephrosis.
--- OUTSIDE RECORDS SUMMARY | 2025-04-18 03:00 | XMS_ITS ---
Author Organization [facility] [place] ([address]) Address [address] [place] [address] Care Team Providers Care Sheriff'S Officer Name Role Phone Shwetha Vences Primary Care Provider Jamison Hernandez Unavailable [phone] ZZ-Migration, Provider Unavailable Unavailab [facility] VISIT [facility] Conversion Encounter Medications Medication SIG (Take, Route, Frequency, Duration) Notes Start Date End Date Status Allergy Relief (Cetirizine) 10 MG 1 tab(s) orally once a day 08/29/2023 Active Wellbutrin XL 150 MG 1 tab(s) orally katiuska ry 24 hours 08/29/2023 Active Encounters Encounter Location Date Provider Diagnosis [address] [address] 05/10/2024 Provider ZZ-Migration Hypertrophy of nasal turbinates [...] Notes * Xavier DAVIDSON:1990 (34 yo M)Acc No.[id number]:05/10/2024 Patient: Srinivas JASON Provider: Mary Juarez :1990 A ge:33 Y S ex:Male Date:05/10/2024 Address:[facility] [address] [place], [place] [id number] Pcp:Shwetha Vences Subjective: * Chief Complaints: * 1 . [facility] To [facility] Conversion Encounter. * Medical History: Objective: * Vitals: Assessment: * Assessment: 1. H ypertrophy of nasal turbinates - J34.3 (Primary) Plan: * Treatment: 2. O thers Continue Wellbutrin XL Tablet Extended Release 24 Hour, 150 MG, 1 tab(s), orally, every 24 hours.? * Billing Information: * Visit Code: * Procedure Codes: * Electronic signature of Prov nigelr ZZ-Migration on 04/18/2025 at 03:00 AM CDT Sign off status: Pending * Provider: Mary Juarez Date: 05/10/2024 Generated for Tim daniel/Sis/Jose Eduardoitting on: 04/18/2025 03:00 AM CDT
--- OUTSIDE RECORDS SUMMARY | 2025-04-18 03:00 | XMS_ITS | Patient Health Record ---
Author Organization [facility] [employer] [facility] [place] ([address]) Address [address] [place] [address] Care Team Providers Care Sales Service Rep Name Role Phone Shwetha Vences Primary Care Provider Jamison Hernandez Unavailable [phone] ZZ-Migration, Provider Unavailable Unavailab le Allergies No [...] W/U Status Risk Notes Problem Anxiety disorder (210187412) Anxiety disorder, unspecified (F41.9) Active confirmed Problem Chronic rhinitis (67249595) Chronic rhinitis (J31.0) Active confirmed Problem Snoring (50109188) Snoring (R06.83) Active confirmed Encounters Encounter Location Date [facility] [id number] [facility] Provider RAQUEL-Ann Hypertrophy of nasal turbinates [...] Insured Coverage Start Date Coverage End Date [facility] [address] [address] [place] [id number] Srinivas Davidson Self - patient is the insured Medical (General) History Medical History History ICD Code Anxiety disorder, unspecified F41.9 Surgical History Surgery Date(Month/Year) appendectomy 1996 Hospitalization History Reason Date(Month/Year) kidney stones 2018 & 2021
--- OUTSIDE RECORDS SUMMARY | 2025-04-18 03:00 | XMS_ITS ---
Author Organization [facility] [place] ([address]) Address [address] [place] [address] Care Team Providers Care Mold Worker Name Role Phone Shwetha Vences Primary Care Provider Unav Jamison Amaro Unavailable [phone] Lucia Justice [phone] REASON FOR VISIT Skin testing Encounters Encounter Location Date Provider Diagnosis [facility] [address] [place] [address] 11/13/2023 Lucia Justice Plan Of Treatment No Information Progress Notes * DAVIDSONSrinivas MEDINADOB:1990 (34 yo M)Acc No.[id number]:11/13/2023 Skin Testing Patient: Srinivas JASON Provider: ROSEANNE Donato :1990 A ge:33 Y S ex:Male Date:11/13/2023 Address:[address] , [id number] Pcp:Shwetha Vences Subjective: * Chief Complaints: * 1 . Skin testing. * Medical History: Objective: * Vitals: Assessment: Plan: * Treatment: * Billing Information: * Visit Code: * Procedure Codes: * Electronic signature of Lucia Justice DNP, FNP-C on 04/18/2025 at 03:00 AM CDT Sign off status: Pending * Provider: Curt Justice DNP CRUSHER AND BLENDER OPERATOR-C Date: 01/14/2023 Generated for Tim daniel/Sis/Natalia on: 0 04/18/2025 03:00 AM CDT
--- NOTE | 2025-04-18 03:22 | ED.NAVMDI ---
HPI - Nausea/Vomiting/Diarrhea General Chief complaint: Nausea/Vomiting/Diarrhea Stated complaint: n/v/ pain after surgery Time Seen by Provider: 04/18/25 03:17 Source: patient Mode of arrival: ambulatory Limitations: no limitations History of Present Illness HPI Narrative: Patient presents with report nausea, 3 or 4 episodes of vomiting, and pain after undergoing lithotripsy the previous day, 04/17/2025, performed by urologist Dr. Turner. He denies any abdominal pain though he does state that the left flank pain radiates to his groin. Upon discharge she had been prescribed Bactrim and tramadol but 1 hour after attempting to take these is when he developed his symptoms. He is unable to keep anything down. He had been experiencing hematuria prior to the lithotripsy but this has resolved. His last bowel movement is unknown but he denies any diarrhea, significant constipation, or blood. He was having subjective fevers but no chills. No bloody emesis. He states he has a history of previous kidney stones but had spontaneously pass them before. Yesterday was the 1st time he required lithotripsy. He has never required percutaneous drains, stents, etc. Related Data Home Medications ?Medication ?Instructions ?Recorded ?Confirmed ?Last Taken ?Type atomoxetine 40 mg capsule 40 mg PO DAILY 06/24/24 04/08/25 Unknown History bupropion HCl 150 mg 24 hr tablet, 150 mg PO DAILY 01/15/25 04/08/25 Unknown History extended release Allergies Allergy/AdvReac Type Severity Reaction Status Date / Time No Known Allergies [facility]25 [facility] Surgical History Hx of lithotripsy Dr Turner for L renal stone Family History Family History Mother Depression Other Diabetes mellitus Social History Social History Smoking status: Never smoker Alcohol intake: current Alcohol use details: 6 PER YR Living arrangements: with family Exam Narrative: GENERAL: well-nourished, in [id number] acute distress. HEAD: Normocephalic, atraumatic. EYES: Non injected, non icteric ENT: Nares clear, no rhinorrhea or epistaxis. Gross auditory acuity intact. NECK: Supple. No meningismus. CHEST: Speaking in full sentences. No respiratory distress. HEART: Regular rate and rhythm. . ABDOMEN: Obese Soft, nondistended. No rigidity or guarding. Not peritoneal EXTREMITIES: Normal range of motion. No lower extremity edema. SKIN: Warm, dry, no rash. NEURO: No focal deficits. Alert and oriented. Answering questions. Following commands. Normal speech without aphasia or dysarthria. PSYCH: Normal mood and affect. Course Vital Signs Vital signs: Vital Signs Temperature 98.6 F 04/18/25 02:59 Pulse Rate 94 04/18/25 02:59 Respiratory Rate 17 04/18/25 02:59 Blood Pressure 153/82 H 04/18/25 02:59 Pulse Oximetry 97 04/18/25 02:59 Oxygen Delivery Room Air 04/18/25 02:59 Temperature 98.6 F 04/18/25 02:59 Pulse Rate 76 04/18/25 07:23 Respiratory Rate 16 04/18/25 07:23 Blood Pressure 127/84 04/18/25 07:23 Pulse Oximetry 96 04/18/25 07:23 Oxygen Delivery Room Air 04/18/25 02:59 MDM - Nausea/Vomiting/Diarrhea MDM Narrative Medical decision making narrative: Patient presents with flank pain, nausea, and vomiting. He is postop day 1 from lithotripsy with urologist Dr Turner. In the emergency department he is afebrile with vital signs notable for hypertension. He has a leukocytosis. Urine with out bacteria but with 1+ leukocyte esterase, some white blood cells and red blood cells. He is already supposed to be on Bactrim post-operatively so will defer changing this regimen. Patient is reassessed at 4:45 a.m.. His nausea is resolved. He states this pain is improving but still 6/10. Patient is reassessed at approximately 7:05 a.m. and he states his pain and nausea are greatly improved. He is resting comfortably. Discussed with urologist Dr. Betts at 07:15. We reviewed patient's abdominal x-ray that had been performed prior to his lithotripsy and it was compared to today's imaging. He notes that this suggests that the stone is smaller and patient still a candidate for expulsion therapy and pain control. Advised tamsulosin, return precautions, etc. Discussed with patient who verifies understanding of the plan and and is in agreement. Given 1st dose of medications in the emergency department the rest the course prescribed along with given strainer and advised on use. Encouraged to follow-up but also given strict emergency department return precautions. Stable for discharge. Differential Diagnosis Differential diagnosis: Likely dehydration and other (Medication side effect; ureteral stone (considered infected, obstructed, etc.); post operative complication) Medical Records Attestation: I reviewed the patient's medical records. Medical records narrative: Abd Xray 04/17/25 Findings: There are left renal stones, largest measuring 11 mm. Bowel gas pattern nonobstructive. There are pelvic phleboliths. No acute osseous abnormality. Impression: 1: Left nephrolithiasis. Lab Data Attestation: I reviewed the patient's lab results. 04/18/25 03:21 04/18/25 03:21 Labs: Lab Results 04/18/25 04/18/25 Range/Units 03:21 04:17 WBC 15.3 H (4.5-10.0) K/mm3 RBC 5.06 (4.6-6.20) M/mm3 Hgb 14.1 (14.0-18.0) g/dL Hct 40.7 L (42.0-52.0) % MCV 80.4 (80-100) fl MCH 27.9 (26-34) pg MCHC 34.6 (32-36) g/dl RDW 12.4 (11.5-14.5) % Plt Count 323 (150-375) k/mm3 MPV 9.6 (7.4-10.4) fl Immature Gran % (Auto) 0.4 (0-0.5) % Neut % (Auto) 80.8 H (45.5-73.1) % Lymph % (Auto) 11.4 L (18.3-44.2) % Mcintosh % (Auto) 7.0 (2.6-8.5) % Eos % (Auto) 0.1 (0-4.4) % Baso % (Auto) 0.3 (0.2-1.2) % Lymph # (Auto) 1.75 (0.9-3.2) K/mm3 Mcintosh # (Auto) 1.1 H (0.1-0.6) K/mm3 Eos # (Auto) 0.0 (0-0.3) K/mm3 Baso # (Auto) 0.0 (0.0-0.1) K/mm3 Abs Immat Gran (auto) 0.06 H (0.00-0.031) K/mm3 Absolute Neuts (auto) 12.4 H (1.3-6.7) K/mm3 Absolute Nucleated RBC 0.000 (0.0-0.012) K/mm3 Nucleated RBC % 0.0 (0.0-0.2) % Sodium 136 L (137-145) mmol/L Potassium 3.6 (3.4-5.0) mmol/L Chloride 103 (98-107) mmol/L Carbon Dioxide 21 L (22-30) mmol/L Anion Gap 12 (4-12) mmol/L BUN 12 (9-20) mg/dL Creatinine 0.89 (0.7-1.3) mg/dL Estim Creat Clear Calc 123 ml/min Estimated GFR > 60 (59 - ) Glucose 116 H (65-110) mg/dL Calcium 9.1 (8.4-10.2) mg/dL Magnesium 1.9 (1.6-2.3) mg/dL Total Bilirubin 0.7 (0.2-1.3) mg/dL AST 37 (17-59) U/L ALT 52 H (6-50) U/L Alkaline Phosphatase 59 (38-126) U/L Total Protein 8.0 (6.3-8.2) g/dL Albumin 4.8 (3.5-5.1) g/dL Lipase 66 (23-300) U/L Urine Color Yellow (Yellow) Urine Appearance Cloudy H (Clear) Urine pH 5.0 (5.0-9.0) Ur Specific Capulin 1.025 (1.001-1.035) Urine Protein 2+ H (Negative) mg/dL Urine Glucose (UA) Negative (Negative) mg/dL Urine Ketones Trace H (Negative) mg/dL Ur Blood (Man) 3+ H (Negative) Urine Nitrate Negative (Negative) Urine Bilirubin Negative (Negative) Urine Urobilinogen 1.0 (<2.0) mg/dL Leukocyte Esterase Rfl 1+ H (Negative) AVIS/UL Urine RBC 51-100 H (0-2) /hpf Urine WBC 11-20 H (0-3) /hpf Ur Squamous Epith Cells None seen (Few) /hpf Urine Bacteria None seen /hpf Urine Casts 0-2 Imaging Data Attestation: I personally reviewed and interpreted this imaging study as follows: My impression: Kidney and Ureteral stone appreciated on my independent interpretation Radiologist's impression: Impressions Abdomen/Pelvis CT 04/18/25 06:50 IMPRESSION: 1. Left nephrolithiasis with 5 mm obstructing stone at the ureteropelvic junction resulting in mild left hydronephrosis. Discharge Plan Discharge Clinical Impression: Leukocytosis, Acute left flank pain, Hx of lithotripsy, Abnormal urinalysis, Left nephrolithiasis, Obstruction of left ureteropelvic junction due to stone, Hydronephrosis, left Patient Disposition: Home Condition: Stable Instructions: Antibiotic Form, Kidney Stones (ED), Leukocytosis (ED), How to Strain Your Urine (ED), Flank Pain (ED), Hydronephrosis (ED), Ureteral Stones (ED) Additional Instructions: As we discussed, you can use the medications prescribed for expulsion therapy. If you pass a stone take it to your follow-up appointment with your urologist, either Dr Turner or the urologist listed below. The oral disintegrating tablets of ondansetron/Zofran can help with nausea and vomiting. Continue taking the antibiotic, Bactrim, as prescribed by your urologist. You can also continue to use the other pain medications that have been prescribed. Return to the emergency department with any new, worsening, or unmanaged symptoms such as intractable pain, intractable nausea/vomiting, fever greater than 100.4? F, etc. Patient Language: Occitan Prescriptions: New tamsulosin 0.4 mg capsule 0.4 mg PO DAILY Qty: 12 0RF ketorolac 10 mg tablet 10 mg PO Q8H PRN (Reason: pain) 5 Days Qty: 14 0RF Rx Instructions: maximum total duration of 5 days from all oral, intranasal, or parenteral formulations ondansetron 4 mg tablet,disintegrating 4 mg PO Q8H PRN (Reason: nausea and vomiting) Qty: 7 0RF No Action atomoxetine 40 mg capsule 40 mg PO DAILY bupropion HCl 150 mg tablet extended release 24 hr 150 mg PO DAILY sulfamethoxazole-trimethoprim [Bactrim DS] 800-160 mg tablet 1 tablet PO Q12H Qty: 6 0RF tramadol 50 mg tablet 50 mg PO Q6H PRN (Reason: pain) Qty: 20 0RF ketorolac 10 mg tablet 10 mg PO Q8H PRN (Reason: pain) 5 Days Qty: 20 0RF Rx Instructions: maximum total duration of 5 days from all oral, intranasal, or parenteral formulations oxycodone 5 mg tablet 5 mg PO Q8H PRN (Reason: pain) Qty: 10 0RF Follow-up/Referrals: Vangie,EMORY Green [Primary Care Provider] - Efrem Turner MD [Physician] - John Betts MD [Physician] - Stand Alone Forms: Work/School Release IP Time of Disposition: 07:33
[2025-04-18 03:26] LABS: Basophils Percent Auto 0.3 % (0.2-1.2); Eosinophils Percent Auto 0.1 % (0-4.4); Hematocrit 40.7 % (42.0-52.0); Hemoglobin 14.1 g/dL (14.0-18.0); Immature Granulocyte Absolute 0.06 K/mm3 (0.00-0.031); Immature Granulocyte Percent A 0.4 % (0-0.5); Lymphocytes Absolute Auto 1.75 K/mm3 (0.9-3.2); Lymphocytes Percent Auto 11.4 % (18.3-44.2); Mean Corpuscular HGB Conc 34.6 g/dl (32-36); Mean Corpuscular Hemoglobin 27.9 pg (26-34); Mean Corpuscular Volume 80.4 fl (80-100); Mean Platelet Volume 9.6 fl (7.4-10.4); Monocytes Absolute Auto 1.1 K/mm3 (0.1-0.6); Neutrophils Absolute Auto 12.4 K/mm3 (1.3-6.7); Neutrophils Percent Auto 80.8 % (45.5-73.1); Platelet Count Result 323 k/mm3 (150-375); Red Blood Count 5.06 M/mm3 (4.6-6.20); Red Cell Distribution Width 12.4 % (11.5-14.5); White Blood Count 15.3 K/mm3 (4.5-10.0)
[2025-04-18] MEDS: MORPHINE SULFATE (*CRX) 4 MG/ML INJ IV PUSH (03:38)
[2025-04-18] MEDS: ONDANSETRON INJ 4 MG/2 ML VIAL IV PUSH (03:38)
[2025-04-18 03:39] LABS: Alanine Aminotransferase 52 U/L (6-50); Albumin Level 4.8 g/dL (3.5-5.1); Alkaline Phosphatase 59 U/L (38-126); Anion Gap 12 mmol/L (4-12); Aspartate Amino Transferase 37 U/L (17-59); Bilirubin,Total 0.7 mg/dL (0.2-1.3); Blood Urea Nitrogen 12 mg/dL (9-20); Calcium 9.1 mg/dL (8.4-10.2); Carbon Dioxide 21 mmol/L (22-30); Chloride 103 mmol/L (98-107); Estimated CRCL calculation 123 ml/min; Estimated Glomerular Filt Rate > 60; Glucose 116 mg/dL (65-110); Lipase 66 U/L (23-300); Potassium 3.6 mmol/L (3.4-5.0); Sodium 136 mmol/L (137-145)
--- NOTE | 2025-04-18 04:10 | PC.NURSE ---
pt ambulatory with steady gait to restroom to attempt to provide urine specimen.
[2025-04-18 04:12] LABS: Magnesium 1.9 mg/dL (1.6-2.3)
--- NOTE | 2025-04-18 04:19 | PC.NURSE ---
ok to not do orthostat vitals per edp bynum.
[2025-04-18 04:25] LABS: Add Urine Microscopic? YES; Appearance Urine Cloudy (Clear); Bacteria Urine None Seen /hpf; Bilirubin Urine Negative (Negative); Blood Urine 3+ (Negative); Color Urine Yellow (Yellow); Glucose Urine UA Negative (Negative); Ketones Urine Trace mg/dL (Negative); Leukocyte Esterase Ur 1+ LEU/UL (Negative); Nitrate Urine Negative (Negative); Non Pathogenic Casts 0-2; Protein Urine 2+ mg/dL (Negative); RBC Urine 51-100 /hpf (0-2); Specific Grav Ur 1.025 (1.001-1.035); Squamous Epithelial Cell Urine None Seen /hpf (Few)
[2025-04-18] MEDS: HYDROmorphone HCL INJ (*CRX) 2 MG/ML VIAL 0.5 MG IV PUSH (04:56)
[2025-04-18] MEDS: TAMSULOSIN HCL 0.4 MG CAPSULE PO (07:25)
[2025-04-18] MEDS: KETOROLAC 15 MG/ML VIAL (*BKC) IV PUSH (07:25)
== END 2025-04-18 07:50 | disposition home or self-care (01) ==
PROVIDERS: Emergency Provider Student in an Organized Health Care Education/Training Program; PCP Physician Assistant
DX: D72.829 Elevated white blood cell count, unspecified (principal); Z98.890 Other specified postprocedural states; R10.9 Unspecified abdominal pain; N13.2 Hydronephrosis with renal and ureteral calculous obstruction
CPT/HCPCS: 36415; 74176; 80053; 81001; 83690; 83735; 85025; 87086; 96374; 96375; 99284; A9270; J1171; J1885; J2270; J2405

== ENCOUNTER 2025-04-29 17:07 | Outpatient (CLI) | payer OTHER, SELFPAY ==
--- NOTE | ~2025-04-29 | XR_ITS ---
XR abdomen/kub 1V Ordering provider: Efrem Turner MD History: . Calcium kidney stone . Comparison: None. FINDINGS: BOWEL: Nonobstructive bowel gas pattern. ORGANOMEGALY: None. SIGNIFICANT PATHOLOGIC CALCIFICATIONS: Stones seen in the left kidney mid and lower poles. OTHER: No free air is seen under the diaphragm. IMPRESSION: NO ACUTE ABDOMINAL FINDINGS. Left kidney stones. Reviewed, dictated and finalized at location A.
--- OUTSIDE RECORDS SUMMARY | 2025-04-29 17:12 | XMS_ITS ---
Author Organization [facility] Includes [facility] [place] ([address]) Address [address] [place] [address] Care Team Providers Care Warehouse Man Name Role Phone Shwetha Vences Primary Care Provider Jamison Hernandez Unavailable [phone] ZZ-Migration, Provider Unavailable Unavailab [facility] Conversion Encounter Medications Medication SIG (Take, Route, Frequency, Duration) Notes Start Date End Date Status Allergy Relief (Cetirizine) 10 MG 1 tab(s) orally once a day 08/29/2023 Active Wellbutrin XL 150 MG 1 tab(s) orally katiuska ry 24 hours 08/29/2023 Active Encounters Encounter Location Date Provider Diagnosis [address] [address] 05/10/2024 Provider ZZ-Migration Hypertrophy of nasal turbinates [...] Notes * Xavier DAVIDSON:1990 (34 yo M)Acc No.[id number]:05/10/2024 Patient: Srinivas JASON Provider: Mary Juarez :1990 A ge:33 Y S ex:Male Date:05/10/2024 Address:[facility] [address] [place], [place] [id number] Pcp:Shwetha Vences Subjective: * Chief Complaints: * 1 . [facility] * Medical History: Objective: * Vitals: Assessment: * Assessment: 1. H ypertrophy of nasal turbinates - J34.3 (Primary) Plan: * Treatment: 2. O thers Continue Wellbutrin XL Tablet Extended Release 24 Hour, 150 MG, 1 tab(s), orally, every 24 hours.? * Billing Information: * Visit Code: * Procedure Codes: * Electronic signature of Prov ider ZZ-Migration on 04/29/2025 at 05:11 PM CDT Sign off status: Pending * Provider: Mary Juarez Date: 0 05/10/2024 Generated for Tim daniel/Sis/Jose Eduardoitting on: 0 04/29/2025 05:11 PM CDT
--- OUTSIDE RECORDS SUMMARY | 2025-04-29 17:12 | XMS_ITS ---
Author Organization [facility] [place] ([address]) Address [address] [place] [address] Care Team Providers Care Corrections Caseworker Name Role Phone Shwetha Vences Primary Care Provider Unav Jamison Amaro Unavailable [phone] Lucia Justice [phone] REASON FOR VISIT Skin testing Encounters Encounter Location Date Provider Diagnosis [facility] [address] [place] [address] 11/13/2023 Lucia Justice Plan Of Treatment No Information Progress Notes * DAVIDSONSrinivas MEDINADOB:1990 (34 yo M)Acc No.[id number]:11/13/2023 Skin Testing Patient: Srinivas JASON Provider: ROSEANNE Donato :1990 A ge:33 Y S ex:Male Date:11/13/2023 Address:[address] [facility] Pcp:Shwetha Vences Subjective: * Chief Complaints: * 1 . Skin testing. * Medical History: Objective: * Vitals: Assessment: Plan: * Treatment: * Billing Information: * Visit Code: * Procedure Codes: * Electronic signature of Lucia Justice DNP, FNP-C on 04/29/2025 at 05:11 PM CDT Sign off status: Pending * Provider: Curt Justice DNP SHIELD RUNNER-C Date: 1 01/14/2023 Generated for Tim daniel/Sis/Natalia on: 0 04/29/2025 05:11 PM CDT
--- OUTSIDE RECORDS SUMMARY | 2025-04-29 17:12 | XMS_ITS | Patient Health Record ---
Author Organization [facility] [employer] [place] ([address]) Address [address] [place] [address] Care Team Providers Care Audiometric Technician Name Role Phone Shwetha Vences Primary Care Provider Jamison Hernandez Unavailable [phone] ZZ-Migration, Provider Unavailable Unavailab le Allergies No [...] W/U Status Risk Notes Problem Anxiety disorder (621475481) Anxiety disorder, unspecified (F41.9) Active confirmed Problem Chronic rhinitis (45428642) Chronic rhinitis (J31.0) Active confirmed Problem Snoring (67528574) Snoring (R06.83) Active confirmed Encounters Encounter [facility] Date [facility] [id number] [facility] Provider RAQUEL-Ann Hypertrophy of nasal turbinates [...] Insured Coverage Start Date Coverage End Date [facility] [address] [address] [place] [address] [phone] [id number] Srinivas Davidson Self - patient is the insured Medical (General) History Medical History History ICD Code Anxiety disorder, unspecified F41.9 Surgical History Surgery Date(Month/Year) appendectomy 1996 Hospitalization History Reason Date(Month/Year) kidney stones 2018 & 2021
== END 2025-04-29 17:08 | disposition home or self-care (01) ==
PROVIDERS: PCP Physician Assistant; Visit Provider Urology
DX: N20.0 Calculus of kidney (principal)
CPT/HCPCS: 74018

== ENCOUNTER 2025-05-26 15:48 | Outpatient (CLI) | payer OTHER, SELFPAY ==
--- NOTE | ~2025-05-26 | XR_ITS ---
Supine and upright views of the abdomen Clinical history: Kidney stone COMPARISON: 04/29/2025 Findings: Bowel gas pattern is nonspecific. No evidence for obstruction or free air. Stable small lef t renal stone present. Osseous structures are intact. Impression: Stable small left renal stone. Reviewed, dictated and finalized at [facility]. Impression: Stable small left renal stone.
--- OUTSIDE RECORDS SUMMARY | 2025-05-26 15:52 | XMS_ITS | Clinical Summary ---
Author Organization [facility] Address [address] [place] [address] Care Team Providers Care Egg Gatherer Name Role Phone Unavailable Primary Care Provider [...] 10:00 AM CDT Height 176.5 cm (5' 9.5) 08/03/2015 10:54 AM CD T Body Mass [...]
--- OUTSIDE RECORDS SUMMARY | 2025-05-26 15:52 | XMS_ITS | Patient Health Record ---
Author Organization [facility] [employer] [place] ([address]) Address [address] [place] [address] Care Team Providers Care Life Skills Coordinator Volunteer Name Role Phone Shwetha Vences Primary Care Provider Jamison Hernandez Unavailable [phone] Allergies No Known Allergies Reason For Referral [...] W/U Status Risk Notes Problem Anxiety disorder (128971303) Anxiety disorder, unspecified (F41.9) Active confirmed Problem Chronic rhinitis (88645571) Chronic rhinitis (J31.0) Active confirmed Problem Snoring (83010055) Snoring (R06.83) Active confirmed Plan Of Treatment Pending Test Test Name Order Date -Respiratory Allergens w/Total IgE Area 8 09/17/2023 Insurance Providers Payer Name Payer Address Payer Phone Subscriber Number Group Number Insured Name Patient Relationship to Insured Coverage Start Date Coverage End Date [facility] [address] [address] [place] [address] [id number] Srinivas Davidson Self - patient is the insured Medical (General) History Medical History History ICD Code Anxiety disorder, unspecified F41.9 Surgical History Surgery Date(Month/Year) appendectomy 1996 Hospitalization History Reason Date(Month/Year) kidney stones 2018 & 2021
--- OUTSIDE RECORDS SUMMARY | 2025-05-26 15:53 | XMS_ITS ---
Author Organization [facility] [place] ([address]) Address [address] [place] [address] Care Team Providers Care Corporate Executive Chef Name Role Phone Shwetha Vences Primary Care Provider Jamison Hernandez Unavailable [phone] ZZ-Migration, Provider Unavailable Unavailab [facility] Conversion Encounter Medications Medication SIG (Take, Route, Frequency, Duration) Notes Start Date End Date Status Allergy Relief (Cetirizine) 10 MG 1 tab(s) orally once a day 08/29/2023 Active Wellbutrin XL 150 MG 1 tab(s) orally katiuska ry 24 hours 08/29/2023 Active Encounters Encounter Location Date Provider Diagnosis [address] [address] 05/10/2024 Provider ZZ-Migration Hypertrophy of nasal turbinates [...] Notes * Xavier DAVIDSON:1990 (34 yo M)Acc No.[id number]:05/10/2024 Patient: Srinivas JASON Provider: Mary Juarez :1990 A ge:33 Y S ex:Male Date:05/10/2024 Address:[facility] [address], [address] [place], [place] [id number] Pcp:Shwetha Vences Subjective: * Chief Complaints: * 1 . [facility] To [facility] Conversion Encounter. * Medical History: Objective: * Vitals: Assessment: * Assessment: 1. H ypertrophy of nasal turbinates - J34.3 (Primary) Plan: * Treatment: 2. O thers Continue Wellbutrin XL Tablet Extended Release 24 Hour, 150 MG, 1 tab(s), orally, every 24 hours.? * Billing Information: * Visit Code: * Procedure Codes: * Electronic signature of Prov ider ZZ-Migration on 05/26/2025 at 03:52 PM CDT Sign off status: Pending * Provider: Mary Juarez Date: 05/10/2024 Generated for Tim daniel/Sis/Jose Eduardoitting on: 05/26/2025 03:52 PM CDT
== END 2025-05-26 15:49 | disposition home or self-care (01) ==
PROVIDERS: PCP Physician Assistant; Visit Provider Urology
DX: N20.0 Calculus of kidney (principal)
CPT/HCPCS: 74018

== ENCOUNTER 2025-05-29 05:19 | Emergency (ER) | payer OTHER, SELFPAY ==
[2025-05-29] VITALS (8 sets, daily range): BP systolic 119–135; BP diastolic 70–74; PULSE 59–86; RESP 16–22; TEMP 36.6; O2SAT 98–100
--- NOTE | ~2025-05-29 | XR_ITS ---
CHEST RADIOGRAPH CLINICAL HISTORY: allergic reaction . COMPARISON: 06/25/2024 TECHNIQUE: Single portable view of the chest. FINDINGS The cardiomediastinal silhouette is unremarkable. The lungs are clear. IMPRESSION: No focal infiltrate or effusion. Reviewed, dictated and finalized at location A.
--- OUTSIDE RECORDS SUMMARY | 2025-05-29 05:21 | XMS_ITS | Patient Health Record ---
Author Organization [facility] [employer] [place] ([address]) Address [address] [place] [address] Care Team Providers Care Collar Stay Fuser Tender Name Role Phone Shwetha Vences Primary Care Provider Jamison Hernandez Unavailable [phone] Allergies No Known Allergies Reason For Referral [...] W/U Status Risk Notes Problem Anxiety disorder (666351109) Anxiety disorder, unspecified (F41.9) Active confirmed Problem Chronic rhinitis (19767516) Chronic rhinitis (J31.0) Active confirmed Problem Snoring (29309219) Snoring (R06.83) Active confirmed Plan Of Treatment Pending Test Test Name Order Date -Respiratory Allergens w/Total IgE Area 8 09/17/2023 Insurance Providers Payer Name Payer Address Payer Phone Subscriber Number Group Number Insured Name Patient Relationship to Insured Coverage Start Date Coverage End Date [facility] [address] [address] [place] [address] [phone] [id number] Srinivas Davidson Self - patient is the insured Medical (General) History Medical History History ICD Code Anxiety disorder, unspecified F41.9 Surgical History Surgery Date(Month/Year) appendectomy 1996 Hospitalization History Reason Date(Month/Year) kidney stones 2018 & 2021
--- OUTSIDE RECORDS SUMMARY | 2025-05-29 05:21 | XMS_ITS ---
Author Organization [facility] [place] ([address]) Address [address] [place] [address] Care Team Providers Care Assembler Caterpillar Spider Name Role Phone Shwetha Vences Primary Care Provider Jamison Hernandez Unavailable [phone] ZZ-Migration, Provider Unavailable Unavailab [facility] Con[facility] Encounter Medications Medication SIG (Take, Route, Frequency, Duration) Notes Start Date End Date Status Allergy Relief (Cetirizine) 10 MG 1 tab(s) orally once a day 08/29/2023 Active Wellbutrin XL 150 MG 1 tab(s) orally katiuska ry 24 hours 08/29/2023 Active Encounters Encounter Location Date Provider Diagnosis [address] [address] 05/10/2024 Provider ZZ-Migration Hypertrophy of nasal turbinates [...] Notes * Xavier DAVIDSON:1990 (34 yo M)Acc No.[id number]:05/10/2024 Patient: Srinivas JASON Provider: Mary Juarez :1990 A ge:33 Y S ex:Male Date:05/10/2024 Address:[facility] [address], [address] [place], [place] [address] Pcp:Shwetha Vences Subjective: * Chief Complaints: * [facility] . [facility] * Medical History: Objective: * Vitals: Assessment: * Assessment: 1. H ypertrophy of nasal turbinates - J34.3 (Primary) Plan: * Treatment: 2. O thers Continue Wellbutrin XL Tablet Extended Release 24 Hour, 150 MG, 1 tab(s), orally, every 24 hours.? * Billing Information: * Visit Code: * Procedure Codes: * Electronic signature of Prov nigelr ZZ-Migration on 05/29/2025 at 05:21 AM CDT Sign off status: Pending * Provider: Mary Juarez Date: 0 05/10/2024 Generated for Tim daniel/Sis/Jose Eduardoitting on: 05/29/2025 05:21 AM CDT
--- NOTE | 2025-05-29 05:30 | ED.ALLEREA ---
HPI - Allergic Reaction General Chief complaint: Allergic Reaction Stated complaint: allergic reaction Time Seen by Provider: 05/29/25 05:24 History of Present Illness HPI narrative: 34-year-old male with history of kidney stones presenting to the emergency department today with suspected allergic reaction. He states that he has an acquired allergies to beed and beef products and whenever he ingest beef he nausea and abdominal discomfort and flushing. He states that he normally gets his symptoms quickly after eating beef and beef products and they go away after several minutes and after he vomits he feels better. This has happened to him several times most recently a few months ago. This only started within the last 2 years or so and he has not seen a specialist or an autocad draftsman. He previously was eating meat without any difficulties in childhood and adulthood. He had some chili with beef in it last night around 9:00 p.m. and started getting the symptoms that he usually gets. He started getting flushing in his face, nauseousness and some abdominal discomfort. No shortness of breath or difficulty swallowing or throat closing sensations. His symptoms persisted into the morning so he came to the ER. Endorses sharp abdominal discomfort and cramps as well as nauseousness and vomiting 4 times. He does have some flushing around his face but denies any trouble breathing trouble swallowing, difficulty tolerating secretions or phonation changes. No diarrhea or dysuria. Was otherwise in his normal state of health. Inquired about potential exposures to tick-borne illnesses to cause an acquired beef allergy and he is not aware of any. Related Data Home Medications ?Medication ?Instructions ?Recorded ?Confirmed ?Last Taken ?Type atomoxetine 40 mg capsule 40 mg PO DAILY 06/24/24 04/08/25 Unknown History bupropion HCl 150 mg 24 hr tablet, 150 mg PO DAILY 01/15/25 04/08/25 Unknown History extended release Allergies Allergy/AdvReac Type Severity Reaction Status Date / Time No Known Allergies Allergy Verified 04/18/25 02:58 Review of Systems Review of Systems: As reviewed above in HPI [facility] Surgical History Surgical History Hx of lithotripsy Dr Turner for L renal stone Family History Family History Mother Depression Other Diabetes mellitus Social History Social History Smoking status: Never smoker Alcohol intake: current Alcohol use details: 6 PER YR Living arrangements: with family Exam Narrative: GENERAL: Redness and flushing to the face but not any acute distress, answering questions appropriately HEAD: [Normocephalic, atraumatic.] EYES: Some mild periorbital edema and redness to the skin but extraocular movements are intact, pupils are equal reactive to light. Some mild petechiae around the eyes ENT: Nares clear, no rhinorrhea or epistaxis. Mucous membranes moist. NECK: Supple. CHEST: [Clear to auscultation. No respiratory distress.] HEART: [Regular rate and rhythm]. No murmur heard. [Normal peripheral pulses.] ABDOMEN: [Soft, nondistended], [nontender], [No rigidity or guarding] EXTREMITIES: Normal range of motion. [No edema.] SKIN: Warm, dry, no rash. NEURO: [No focal deficits]. Alert and oriented [x3.] PSYCH: [Normal mood and affect.] Course Vital Signs Vital signs: Vital Signs Temperature 36.6 C 05/29/25 05:37 Pulse Rate 86 05/29/25 05:37 Respiratory Rate 22 H 05/29/25 05:37 Blood Pressure 135/74 05/29/25 05:37 Pulse Oximetry 98 05/29/25 05:37 Oxygen Delivery Room Air 05/29/25 05:37 Temperature 36.6 C 05/29/25 05:37 Pulse Rate 62 05/29/25 06:31 Respiratory Rate 17 05/29/25 06:31 Blood Pressure 122/74 05/29/25 06:31 Pulse Oximetry 100 05/29/25 06:31 Oxygen Delivery Room Air 05/29/25 06:32 MDM - Allergic Reaction MDM Narrative Medical decision making narrative: 34-year-old male with history of kidney stones presenting to the emergency department today with suspected allergic reaction. He states that he has an acquired allergy to beef and beef products and whenever he ingest beef he gets nausea and abdominal discomfort and flushing. He states that he normally gets his symptoms quickly after eating beef and beef products and they go away after several minutes and after he vomits he feels better. This has happened to him several times most recently a few months ago. This only started within the last 2 years or so and he has not seen a specialist or an autocad draftsman. He previously was eating meat without any difficulties in childhood and adulthood. He had some chili with beef in it last night around 9:00 p.m. and started getting the symptoms that he usually gets. He started getting flushing in his face, nauseousness and some abdominal discomfort. No shortness of breath or difficulty swallowing or throat closing sensations. His symptoms persisted into the morning so he came to the ER. Endorses sharp abdominal discomfort and cramps as well as nauseousness and vomiting 4 times. He does have some flushing around his face but denies any trouble breathing trouble swallowing, difficulty tolerating secretions or phonation changes. No diarrhea or dysuria. Was otherwise in his normal state of health. Inquired about potential exposures to tick-borne illnesses to cause an acquired beef allergy and he is not aware of any. Patient's examination shows some red facial flushing and periorbital edema and petechiae which could be a combination of allergy and potential pressure from the vomiting several times. He has some minor abdominal discomfort but otherwise not any distress with a soft nontender nondistended abdomen with normal vital signs. Given patient's historical features and allergy to beef products this is likely a minor allergic reaction given the duration of symptoms and minor severity of symptoms. Will attempt antihistamine treatment with diphenhydramine and H1 blocking with Pepcid and given a fluid bolus. Basic laboratory studies obtained and chest x-ray ordered. Will evaluate him to see how he responds but given that this is a known issue for him he can likely be discharged home with outpatient follow-up with a autocad draftsman and primary care provider. Patient re-evaluated after Pepcid and Benadryl had symptomatic improvement. No longer nauseous or in pain and his redness and peripheral edema have subsided. Symptoms controlled histamine blockers likely allergic reaction mediated. Patient was comfortable with discharge home and will follow-up with an autocad draftsman and his primary care provider. His laboratory studies show a minor leukocytosis but no other acute abnormalities in his chest x-ray does not show any pneumonia or effusions. Patient will be prescribed Pepcid and Benadryl at appropriate doses to help combat symptoms if they were to recur and he is given discharge instructions and return precautions. Medical Records Attestation: I reviewed the patient's medical records. Lab Data Attestation: I reviewed the patient's lab results. 05/29/25 05:41 05/29/25 05:41 Labs: Lab Results 05/29/25 Range/Units 05:41 WBC 12.9 H (4.5-10.0) K/mm3 RBC 4.95 (4.6-6.20) M/mm3 Hgb 13.8 L (14.0-18.0) g/dL Hct 39.9 L (42.0-52.0) % MCV 80.6 (80-100) fl MCH 27.9 (26-34) pg MCHC 34.6 (32-36) g/dl RDW 12.6 (11.5-14.5) % Plt Count 309 (150-375) k/mm3 MPV 9.4 (7.4-10.4) fl Immature Gran % (Auto) 0.5 (0-0.5) % Neut % (Auto) 83.8 H (45.5-73.1) % Lymph % (Auto) 9.5 L (18.3-44.2) % [place] % (Auto) 5.5 (2.6-8.5) % Eos % (Auto) 0.2 (0-4.4) % Baso % (Auto) 0.5 (0.2-1.2) % Lymph # (Auto) 1.23 (0.9-3.2) K/mm3 [place] # (Auto) 0.7 H (0.1-0.6) K/mm3 Eos # (Auto) 0.0 (0-0.3) K/mm3 Baso # (Auto) 0.1 (0.0-0.1) K/mm3 Abs Immat Gran (auto) 0.07 H (0.00-0.031) K/mm3 Absolute Neuts (auto) 10.8 H (1.3-6.7) K/mm3 Absolute Nucleated RBC 0.000 (0.0-0.012) K/mm3 Nucleated RBC % 0.0 (0.0-0.2) % Sodium 134 L (137-145) mmol/L Potassium 3.8 (3.4-5.0) mmol/L Chloride 99 (98-107) mmol/L Carbon Dioxide 22 (22-30) mmol/L Anion Gap 13 H (4-12) mmol/L BUN 13 (9-20) mg/dL Creatinine 0.81 (0.7-1.3) mg/dL Estim Creat Clear Calc 134 ml/min Estimated GFR > 60 (59 - ) Glucose 136 H (65-110) mg/dL Calcium 9.1 (8.4-10.2) mg/dL Magnesium 1.9 (1.6-2.3) mg/dL Total Bilirubin 0.5 (0.2-1.3) mg/dL AST 46 (17-59) U/L ALT 72 H (6-50) U/L Alkaline Phosphatase 54 (38-126) U/L Total Protein 7.9 (6.3-8.2) g/dL Albumin 4.9 (3.5-5.1) g/dL Imaging Data Attestation: I personally reviewed and interpreted this imaging study as follows: My impression: No acute pneumonia, pleural effusion or pneumothorax. Discharge Plan Discharge Clinical Impression: Allergy to beef, Allergic reaction Patient Disposition: Home Condition: Stable Instructions: Antibiotic Form, Allergies (ED) Additional Instructions: Your symptoms are consistent with allergic reaction and triggers likely be for beef products as he have a history of this. We have given you had histamine blocking agents which controlled her symptoms here. We will prescribe him to take in case you have any relapse of symptoms or exposure again. Follow-up with a primary doctor and an autocad draftsman. Return with any emergent concerns. Patient Language: Spanish Prescriptions: New famotidine [Pepcid] 20 mg tablet 20 mg PO BID PRN (Reason: Allergy Symptoms) Qty: 20 0RF diphenhydramine HCl [Allergy (diphenhydramine)] 25 mg capsule 25 mg PO TID PRN (Reason: allergic reaction) Qty: 20 0RF No Action atomoxetine 40 mg capsule 40 mg PO DAILY bupropion HCl 150 mg tablet extended release 24 hr 150 mg PO DAILY sulfamethoxazole-trimethoprim [Bactrim DS] 800-160 mg tablet 1 tablet PO Q12H Qty: 6 0RF tramadol 50 mg tablet 50 mg PO Q6H PRN (Reason: pain) Qty: 20 0RF tamsulosin 0.4 mg capsule 0.4 mg PO DAILY Qty: 12 0RF ketorolac 10 mg tablet 10 mg PO Q8H PRN (Reason: pain) 5 Days Qty: 14 0RF Rx Instructions: maximum total duration of 5 days from all oral, intranasal, or parenteral formulations ondansetron 4 mg tablet,disintegrating 4 mg PO Q8H PRN (Reason: nausea and vomiting) Qty: 7 0RF ketorolac 10 mg tablet 10 mg PO Q8H PRN (Reason: pain) 5 Days Qty: 20 0RF Rx Instructions: maximum total duration of 5 days from all oral, intranasal, or parenteral formulations oxycodone 5 mg tablet 5 mg PO Q8H PRN (Reason: pain) Qty: 10 0RF Follow-up/Referrals: Vangie,EMORY Green [Primary Care Provider] - Time of Disposition: 06:44
--- OUTSIDE RECORDS SUMMARY | 2025-05-29 05:35 | XMS_ITS | Clinical Summary ---
Author Organization [facility] Address [address] [place] [id number] Care Team Providers Care [employer] Saw Operator Name Role Phone Unavailable Primary Care Provider [...]
[2025-05-29 05:46] LABS: Hematocrit 39.9 % (42.0-52.0); Hemoglobin 13.8 g/dL (14.0-18.0); Immature Granulocyte Percent A 0.5 % (0-0.5); Lymphocytes Absolute Auto 1.23 K/mm3 (0.9-3.2); Mean Corpuscular HGB Conc 34.6 g/dl (32-36); Mean Corpuscular Hemoglobin 27.9 pg (26-34); Mean Corpuscular Volume 80.6 fl (80-100); Nucleated Red Blood Cells Absolute Auto 0.000 K/mm3 (0.0-0.012); Nucleated Red Blood Cells Perc 0.0 % (0.0-0.2); Platelet Count Result 309 k/mm3 (150-375); Red Blood Count 4.95 M/mm3 (4.6-6.20); White Blood Count 12.9 K/mm3 (4.5-10.0)
[2025-05-29] MEDS: LACTATED RINGERS 1,000 ML 999 ML IV CONT (05:50)
[2025-05-29] MEDS: ONDANSETRON INJ 4 MG/2 ML VIAL IV PUSH (05:51)
[2025-05-29] MEDS: FAMOTIDINE 20 MG/2 ML VIAL IV PUSH (05:51)
[2025-05-29 05:56] LABS: Alanine Aminotransferase 72 U/L (6-50); Albumin Level 4.9 g/dL (3.5-5.1); Alkaline Phosphatase 54 U/L (38-126); Anion Gap 13 mmol/L (4-12); Aspartate Amino Transferase 46 U/L (17-59); Bilirubin,Total 0.5 mg/dL (0.2-1.3); Blood Urea Nitrogen 13 mg/dL (9-20); Calcium 9.1 mg/dL (8.4-10.2); Carbon Dioxide 22 mmol/L (22-30); Chloride 99 mmol/L (98-107); Estimated CRCL calculation 134 ml/min; Estimated Glomerular Filt Rate > 60; Glucose 136 mg/dL (65-110); Magnesium 1.9 mg/dL (1.6-2.3); Potassium 3.8 mmol/L (3.4-5.0); Sodium 134 mmol/L (137-145); Total Protein 7.9 g/dL (6.3-8.2)
== END 2025-05-29 06:54 | disposition home or self-care (01) ==
PROVIDERS: Emergency Provider Student in an Organized Health Care Education/Training Program; PCP Physician Assistant
DX: T78.1XXA Other adverse food reactions, not elsewhere classified, initial encounter (principal); X58.XXXA Exposure to other specified factors, initial encounter
CPT/HCPCS: 36415; 71045; 80053; 83735; 85025; 96361; 96374; 96375; 99284; J1200; J2405; J7120

== ENCOUNTER 2025-07-23 16:42 | Emergency (ER) | payer OTHER, SELFPAY ==
[2025-07-23 16:48] VITALS: BP 148/88; PULSE 84; RESP 16; TEMP 37; O2SAT 100
--- NOTE | 2025-07-23 17:30 | ED_ITS ---
HPI - Nausea/Vomiting/Diarrhea General Chief complaint: Nausea/Vomiting/Diarrhea Stated complaint: nauseous Time Seen by Provider: 07/23/25 16:45 Source: patient Mode of arrival: ambulatory Limitations: no limitations History of Present Illness HPI Narrative: Patient is a 34-year-old male who presents with nausea for 3 days. Patient states he is doing better today than at the start of symptoms. Patient denies a ny fever, chills, vomiting, diarrhea, constipation or abdominal cramping. Patient has not taken anything for symptoms. Patient states after he drinks fluids he feels queasy. Symptoms improved with laying down. Patient denies any blood in urine or feeling like it did last time he had a kidney stone. Patient has still been able to work each day. Patient had PCP appointment a few months ago with regular labs. Denies any abdominal tenderness or flank pain. Related Data Home Medications ?Medication ?Instructions ?Recorded ?Confirmed ?Last Taken ?Type atomoxetine 40 mg capsule 40 mg PO DAILY 06/24/2403/26 Unknown History bupropion HCl 150 mg 24 hr tablet, 150 mg PO DAILY 04/08/25 Unknown History extended release Allergies Allergy/AdvReac Type Severity Reaction Status Date / Time No Known Allergies Allergy Verified 07/23/25 16:49 Review of Systems Review of Systems: All systems reviewed & are unremarkable except as noted in HPI and below Constitutional: Constitutional: Denies body ache(s), Denies chills, Denies fatigue, Denies fever(s), Denies headache(s), Denies malaise and Denies weakness Eyes: Eyes: Denies blurry vision, Denies irritation and Denies loss of vision ENT: Denies otalgia, Denies headache(s), Denies nasal discharge, Denies sinus pain and Denies sore throat Cardiovascular: Cardiovascular: Denies chest pain, Denies irregular heart rhythm and Denies dyspnea Respiratory: Respiratory: Denies dyspnea Gastrointestinal: Gastrointestinal: Denies abdominal pain, Denies melena, Denies hematochezia, Denies diarrhea, Reports nausea and Denies vomiting Musculoskeletal: Musculoskeletal: Denies back pain, Denies myalgias and Denies arthralgias Integumentary/Breasts: Skin/Breast: Denies pruritus and Denies rash Neurologic: Denies headache(s), Denies loss of vision and Denies weakness Psychiatric: Psychiatric: Reports no additional psychiatric complaints Endocrine: Endocrine: Denies fatigue PMFSH Surgical History Surgical History Hx of lithotripsy Dr Turner for L renal stone Family History Family History Mother Depression Other Diabetes mellitus Social History Social History Smoking status: Never smoker Alcohol intake: current Alcohol use details: 6 PER YR Living arrangements: with family Comments At time of signature, agree with nursing past medical, surgical, social and family history. There is no relevant family history pertinent to the presenting complaint. Exam Const: General: cooperative, healthy appearing, comfortable, no acute distress and well nourished Nutritional Appearance: well nourished Orientation/consciousness: patient oriented x3 Limitations: no limitations HENMT: Head: normal to inspection, normocephalic and atraumatic Ears: hearing grossly normal bilaterally and external ears normal Face/Nose/Sinus: Normal external nose present, normal facial exam and face symmetric Face and sinus: normal facial exam and face symmetric Mouth: Yes lip normal Eyes: General: appearance normal, both eyes and all related structures Alignment and Position: alignment normal and position normal Periorbital: periorbital findings normal Eyelids: eyelids normal Pupils: Equal, round and reactive pupils present EOM: EOMs intact bilaterally Neck: Neck: normal visual inspection, full ROM and supple Chest: Chest palpation & inspection: normal inspection of the chest Resp: Effort & Inspection: normal respiratory effort and able to speak in complete sentences Auscultation: clear to auscultation bilaterally Cardio: Rate: regular rate Rhythm: regular rhythm Heart sounds: S1 normal heart sound present and S2 normal heart sound present GI: Inspection: normal to inspection GI Palp: No abdominal tenderness, Yes Soft to palpation, No Tenderness to palpation present (GI) and No Guarding due to palpation present (GI) Auscultation: normal bowel sounds : General: Yes no CVA tenderness Skin: General skin exam: normal color and no rashes or lesions noted Neuro: General: patient oriented x3 and moves all extremities Cranial nerves: Yes Equal, round and reactive pupils present Speech: normal speech Gait exam (Neuro): Normal gait present Extrem: General: normal to inspection, full ROM and no edema Psych: Appearance: grossly normal and well kempt Mental Status: mental status grossly normal Speech and movement: Normal speech and movement present Affect: normal affect Attitude: cooperative Thought process: Normal thought process present Course Course Emergency Course: Patient is aware of diagnosis, understands and agrees to treatment plan. Anticipatory guidance given. Patient agrees to follow-up as directed and is aware of reasons to seek care at the emergency department. Portions of this record may have been created with voice recognition software Level of Care: Express Care Visit Vital Signs Vital signs: Vital Signs Temperature 37.0 C 07/23/25 16:48 Pulse Rate 84 07/23/25 16:48 Respiratory Rate 16 07/23/25 16:48 Blood Pressure 148/88 H 07/23/25 16:48 Pulse Oximetry 100 07/23/25 16:48 Oxygen Delivery Room Air 07/23/25 16:48 Temperature 37.0 C 07/23/25 16:48 Pulse Rate 84 07/23/25 16:48 Respiratory Rate 16 07/23/25 16:48 Blood Pressure 148/88 H 07/23/25 16:48 Pulse Oximetry 100 07/23/25 16:48 Oxygen Delivery Room Air 07/23/25 16:48 Reviewed MDM - Nausea/Vomiting/Diarrhea MDM Narrative Medical decision making narrative: Pt well hydrated appearing, in no respiratory distress, hemodynamically stable. Recommend supportive care. The patient is stable at time of discharge the clinical impression was discussed and the patient was given the opportunity to ask questions, which were addressed as completely as possible given the information available at present. Anticipatory guidance and return to care precautions were discussed and the importance of primary care follow-up was stressed and encouraged. The patient voiced understanding of the plan, indications to return, and the need for follow-up. Exam findings show no acute concerns or changes Patient is appropriate for outpatient treatment and follow-up. Differential Diagnosis Differential diagnosis: Likely food poisoning, gastroenteritis and drug-induced nausea and vomiting Medical Records Attestation: I reviewed the patient's medical records. Lab Data Attestation: I reviewed the patient's lab results. Labs: Lab Results 07/23/25 Range/Units 17:45 POC Influenza A Ag Negative (Negative) POC Influenza B Ag Negative (Negative) POC SARS CoV-2 Ag Negative (Negative) Discharge Plan Discharge Clinical Impression: Nausea Patient Disposition: Home Condition: Stable Instructions: Acute Nausea and Vomiting (ED) Additional Instructions: Stay hydrated. Take small sips of fluid containing electrolytes frequently(Body [place], Gatorade, Powerade, liquid IV). Eat small meals that her very bland including bananas, applesauce, rice, toast, boiled or grilled chicken, soup. Do not eat anything fried, spicy or overly acidic. You should go to the hospital if you experience return of persistent nausea and vomiting that does not resolve and does not allow you to tolerate any food or fluids, persistent fevers for greater than 2-3 more days, increasing abdominal pain that persists despite medications, persistent diarrhea, dizziness, syncope (fainting), or for any other concerns. Your blood pressure was elevated above 120/80 today at Urgent Care. This puts you above the threshold for follow up visit with a primary care provider. High blood pressure does not usually cause any symptoms, however it may lead to kidney failure, stroke, heart disease just to name a few if untreated . Many people are anxious when seeing a provider or nurse. As a result, you are not diagnosed with hypertension at this time unless your blood pressure is persistently high at two office visits at least one week apart. Some things that can help lower blood pressure are lifestyle modifications, such as light exercise, decreased salt in diet, and weight loss. It is important to follow up with a PCP about this within 1 week. Patient Language: Romansh Prescriptions: New ondansetron 4 mg tablet,disintegrating 4 mg PO Q6-8H PRN (Reason: nausea and vomiting) Qty: 7 0RF No Action atomoxetine 40 mg capsule 40 mg PO DAILY bupropion HCl 150 mg tablet extended release 24 hr 150 mg PO DAILY famotidine [Pepcid] 20 mg tablet 20 mg PO BID PRN (Reason: Allergy Symptoms) Qty: 20 0RF diphenhydramine HCl [Allergy (diphenhydramine)] 25 mg capsule 25 mg PO TID PRN (Reason: allergic reaction) Qty: 20 0RF Follow-up/Referrals: Vangie,EMORY Green [Primary Care Provider, Family Practice] - 3 Days Time of Disposition: 17:47
[2025-07-23 17:47] LABS: EDCOVIDSCREEN Negative (Negative); EDINFLUASCREEN Negative (Negative); EDINFLUBSCREEN Negative (Negative)
== END 2025-07-23 17:51 | disposition home or self-care (01) ==
PROVIDERS: Emergency Provider Nurse Practitioner Family; PCP Physician Assistant
DX: R11.0 Nausea (principal); Z20.822 Contact with and (suspected) exposure to COVID-19
CPT/HCPCS: 87426; 87804; 99213; G0463